=== PATIENT | male | born 1980 | race Two or more races ===

== ENCOUNTER 2024-11-11 13:06 | Inpatient (IN) | payer OTHER, SELFPAY ==
[2024-11-11 13:07] VITALS: BMI 25.1
--- NOTE | 2024-11-11 13:31 | XR_ITS ---
Examination: Knee, right , 3 views Technique: Knee AP, lateral, oblique 3 views Date and time of exam: November 11, 2024 1337 hrs. Indications: Patient fell today with injury to the knee, knee pain. Findings: No acute fracture No dislocation No foreign body Impression: No acute fracture
[2024-11-11 13:51] VITALS: BP 90/61; PULSE 92; RESP 18; TEMP 37; O2SAT 98
--- NOTE | 2024-11-11 13:55 | XR_ITS ---
Examination: Duplex scan of the lower extremity, unilateral right Date and time of exam: December 12, 2024 1454 hrs. Indications: Right knee pain after falling 3 days ago, history dilatation Technique: Duplex scan of the extremity veins using B-mode/grayscale imaging and Doppler spectral analysis and color flow Attention is directed to internal echogenicity, compression and augmentation involving these veins, color flow assessment, spectral analysis Findings: Major deep venous structures in the extremity demonstrate normal course and caliber. There is no evidence of deep vein thrombosis. Normal color flow and spectral analysis Impression: Negative for DVT..
--- NOTE | 2024-11-11 13:56 | PD.EDRME ---
Rapid Medical Screening Exam RME Arrival date/time: 11/11/24 13:06 44-year-old diabetic male presents the emergency department complains of right lower extremity pain and swelling Chief Complaint: Extremity Injury, Lower Time Seen by Provider: 11/11/24 13:21 Vital signs: Vital Signs Temperature 98.6 F 11/11/24 13:51 Pulse Rate 92 11/11/24 13:51 Respiratory Rate 18 11/11/24 13:51 Blood Pressure 90/61 11/11/24 13:51 Pulse Oximetry (%) 98 11/11/24 13:51 Oxygen Delivery Method Room Air 11/11/24 13:51
[2024-11-11 14:30] LABS: Lactate (Lactic Acid) 1.2 mMol/L (0.4-2.0)
[2024-11-11 14:32] LABS: Basophils % (Auto) 0 % (0-2.5); Eosinophils # (Auto) 0.2 Thou/mm3 (0.0-0.5); Eosinophils % (Auto) 1 % (0-10); Hematocrit 28.8 % (41.0-53.0); Immature Granulocytes % (Auto) 1 % (0-0); Immature Granulocytes Auto 0.09 Thou/mm3 (0.00-0.00); Lymphocytes # (Auto) 0.8 Thou/mm3 (1.0-4.8); Lymphocytes % (Auto) 6 % (10-50); Mean Corpuscular HGB Conc 34.7 g/dl (31.0-37.0); Mean Corpuscular Hemoglobin 29.8 pg (25.0-35.0); Mean Corpuscular Volume 86 fL (80-100); Monocytes # (Auto) 1.3 Thou/mm3 (0.0-0.8); Monocytes % (Auto) 9 % (0-12); Neutrophils # (Auto) 11.9 Thou/mm3 (1.8-7.7); Neutrophils % (Auto) 84 % (37-80); Nucleated Red Blood Cell % 0 /100 WBC (0); Platelet Count 239 Thou/mm3 (140-440); RDW Standard Deviation 38.7 fL (35.1-43.9); Red Blood Count 3.36 Miln/mm3 (4.50-5.90); White Blood Count 14.3 Thou/mm3 (3.8-10.6)
[2024-11-11 14:49] LABS: INR 1.1 (0.9-1.3); Partial Thromboplastin Time 30.9 Seconds (22.0-36.0); Prothrombin Time 11.5 Seconds (9.0-12.2)
[2024-11-11 15:06] LABS: Sed Rate (ESR) 76 mm/hr (0-15)
[2024-11-11 15:11] LABS: Alanine Aminotransferase < 7 U/L (10-49); Albumin/Globulin Ratio 1.5 (1.2-2.2); Alkaline Phosphatase 122 U/L (46-116); Anion Gap 10 (7-16); Aspartate Amino Transferase < 8 U/L (0-34); BUN/Creatinine Ratio 20 Ratio (12-20); Bilirubin,Total 0.5 mg/dL (0.3-1.2); Blood Urea Nitrogen 46 mg/dL (9-23); Calcium 9.1 mg/dL (8.3-10.6); Calcium (Corrected) 9.1 mg/dL (8.5-10.1); Carbon Dioxide 18.5 mMol/L (20.0-31.0); Chloride 101 mMol/L (98-107); Creatinine (Component) 2.3 mg/dL (0.6-1.3); Estimated Creatinine Clearance 43.7 mL/min (>60); Globulin 2.7 gm/dL (2.3-3.5); Glucose 369 mg/dL (74-106); Osmolality,Calculated 285 (275-295); Potassium 4.4 mMol/L (3.4-5.1); Procalcitonin 0.74 ng/ml (0.0-0.49); Sodium 129 mMol/L (136-145); Total Protein 6.7 gm/dL (5.7-8.2); Uric Acid 8.4 mg/dL (3.7-9.2); eGFR 35 See Note
--- NOTE | 2024-11-11 16:59 | EDNOTE_ITS ---
Lower Extremity Injury RME/HPI General Chief Complaint: Extremity Injury, Lower Stated Complaint: RIGHT KNEE PAIN FOR 3 DAYS Time Seen by Provider: 11/11/24 13:21 Arrival date/time: 11/11/24 13:06 RME / HPI RME / HPI Narrative: 11/11/24 13:06 44-year-old diabetic male presents the emergency department complains of right lower extremity pain and swelling DR. DOAN MAIN ED EVALUATION: 44 year old male presents to the Emergency Department with complaint of right knee pain onset 3 days; patient unsure of injury. Pain is described as aching and rated mild to moderate in severity. There is associated swelling. 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 Social Hx: No tobacco, alcohol, or substance use. Related Data Home Medications ?Medication ?Instructions ?Recorded ?Confirmed insulin glargine 100 unit/mL (3 60 unit subcut HS 08/03/19 06/23/24 mL) subcutaneous pen (Lantus Solostar U-100 Insulin) insulin lispro 200 unit/mL (3 mL) 1 sliding scale dose subcut 06/24/24 06/24/24 subcutaneous pen (Humalog KwikPen USEASDIRECTD U-200 Insulin) Previous Rx's ?Medication ?Instructions ?Recorded blood-glucose sensor (FreeStyle #1 ea 06/24/24 Jennie 3 Sensor device) ascorbic acid (vitamin C) 500 mg 500 mg PO QDAY #30 caps 06/26/24 capsule Allergies Allergy/AdvReac Type Severity Reaction Status Date / Time No Known Allergies Allergy Verified 11/11/24 13:09 Review of Systems Review of Systems Systems Reviewed: All systems reviewed, normal except as documented Narrative Review of Systems: GEN: No fever, no chills, no weight loss EYES: No discharge, no visual changes, no pain HEENT: No ear pain, no congestion, no sore throat PULM: No shortness of breath, no cough, no congestion CV: No chest pain, no dyspnea on exertion, no palpitations GI: No nausea, no vomiting, no diarrhea, no pain, no constipation : No frequency, no urgency and no dysuria MUSC/SKEL:+ right knee pain with swelling, no back pain SKIN: No rash PSYCH: No hallucinations, no depression HEME/LYMPH: No easy bleeding or bruising tendencies NEURO: No weakness, no headache Past Medical History Past Medical History NEUROLOGIC: Negative Neurological Disorders or Seizures CARDIAC: Positive Cardiac Disorders and Hypercholesterolemia; Negative Congestive Heart Failure RESPIRATORY: Negative Chronic Obstructive Pulmonary Disease (COPD) GASTROINTESTINAL: Negative Gastrointestinal Disorders GENITOURINARY: Negative Genitourinary Disorders or Renal Disease MUSCULOSKELETAL: Positive Osteomyelitis (amputations of toes); Negative Musculoskeletal Disorders ENDOCRINE: Positive Endocrine Disorders and Diabetes Mellitus Type 2; Negative Diabetes Mellitus Type 1 HEMATOLOGIC: Negative Blood Disorders OTHER HISTORY: Negative Autoimmune Disease, Blood Transfusions, Blood Transfusion Reaction, Anesthesia Reactions or Organ Transplant Family History FAMILY HISTORY: Negative Family Psychiatric Problems, Family Respiratory Disorders, Family Cardiac Disorders, Family Gastrointestinal Problems, Family Cancer, Family Surgery or Family Anesthesia Reaction Surgical History SURGICAL: Positive Amputation; Negative Cardiac Surgery, Endocrine Surgery, Ear Surgery, Abdominal Surgery, Nephrectomy, Neurologic Surgery or Organ Transplant Social History SMOKING STATUS: Never smoker SUBSTANCE USE: does not use ED Exam Narrative Physical exam: GENERAL APPEARANCE: alert and oriented x 4, well-developed, well-nourished, no acute distress VITALS: All vitals were reviewed and the pulse ox is 98% on room air, which is normal according to my interpretation. HEENT: Normocephalic, atraumatic; pupils equal, round, reactive to light; EOMI; mucous membranes pink, moist; oropharynx clear NECK: Supple LUNGS: CTABL; no wheezes, no rales, no rhonchi HEART: Regular rate, regular rhythm; normal S1, S2; no murmurs ABDOMEN: non distended; normal BS; soft, no tenderness, no guarding, no rebound; no masses, no organomegaly, no hernia BACK: no CVA tenderness EXTREMITIES: + right knee swelling NEUROLOGIC: awake; alert and oriented x4; cranial nerves II-XII grossly intact; no focal sensory or motor deficits PSYCHIATRIC: appropriate mood and affect SKIN: warm, dry, normal color; no rashes Course Quality Measures none Orders Category Date Time Status COVID-19 Screening Questionnaire NOW Care 11/11/24 17:59 Active Decision to Admit X1 Care 11/11/24 17:59 Active US soft tissue lower back abd Stat Exams 11/11/24 17:31 Ordered US venous doppler LE RT Stat Exams 11/11/24 13:55 Completed XR knee RT 3V Stat Exams 11/11/24 13:31 Completed Blood Culture (Lab) Stat Lab 11/11/24 14:09 Received CBC Stat Lab 11/11/24 14:09 Completed CMP [Comprehensive Metabolic Panel] Stat Lab 11/11/24 14:09 Completed CRP [C-Reactive Protein] Stat Lab 11/11/24 14:09 Completed ESR [Sed Rate (ESR)] Stat Lab 11/11/24 14:09 Completed Extra Blue Top for Platelet Routine Lab 11/11/24 14:09 Completed Lactic Acid [Lactate (Lactic Acid)] Stat Lab 11/11/24 14:09 Completed PT [Prothrombin Time with INR] Stat Lab 11/11/24 14:09 Completed PTT [Partial Thromboplastin Time] Stat Lab 11/11/24 14:09 Completed Procalcitonin Stat Lab 11/11/24 14:09 Completed UA [Urinalysis] Stat Lab 11/11/24 17:33 Ordered UA, C/S IF [Urinalysis, C/S if Indicated] Stat Lab 11/11/24 17:33 Ordered Uric Acid Stat Lab 11/11/24 14:09 Completed Lidocaine 1% 20 ml [Xylocaine 1% 20 ML] Med 11/11/24 17:24 Discontinued 10 ml INFL X1 ONE Sodium Chloride 0.9% 1000 ml [Ns] 1,000 ml Med 11/11/24 16:39 Discontinued IV 999 mls/hr Sodium Chloride 0.9% 1000 ml [Ns] 1,000 ml Med 11/11/24 17:33 Active IV 999 mls/hr cefTRIAXone [Rocephin] 1,000 mg Med 11/11/24 17:33 Discontinued Sodium Chloride 0.9% (P) [Ns 0.9% (P)] 50 ml IV X1 Vital Signs Vital signs: Vital Signs Temperature 98.6 F 11/11/24 13:51 Pulse Rate 92 11/11/24 13:51 Respiratory Rate 18 11/11/24 13:51 Blood Pressure 90/61 11/11/24 13:51 Pulse Oximetry (%) 98 11/11/24 13:51 Oxygen Delivery Method Room Air 11/11/24 13:51 Extremity Injury, Lower MDM Narrative MDM Narrative:: I, Emma Artis am scribing for and in the presence of Dr. Doan. Patient data External records reviewed:: 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 How is presenting disease/condition affected by chronic disease/condition?: exacerbated by Evaluation data The following diagnostics were reviewed and interpreted by me:: lab results and radiology exam(s) Lab and/or radiology exams considered but not ordered:: none Interpretation Summary: Procedure(s): US venous doppler LE RT Accession Number(s): [id number] cc: Casey VILLEGAS),Scooter YUNG; Robert Dent MD; Katlin Pérez PA-C~ Examination: Duplex scan of the lower extremity, unilateral right Date and time of exam: December 12, 2024 1454 hrs. Indications: Right knee pain after falling 3 days ago, history dilatation Technique: Duplex scan of the extremity veins using B-mode/grayscale imaging and Doppler spectral analysis and color flow Attention is directed to internal echogenicity, compression and augmentation involving these veins, color flow assessment, spectral analysis Findings: Major deep venous structures in the extremity demonstrate normal course and caliber. There is no evidence of deep vein thrombosis. Normal color flow and spectral analysis Impression: Negative for DVT.. Dictated By: Robert Dent MD ----- Procedure(s): XR knee RT 3V Accession Number(s): [id number] cc: Casey VILLEGAS),Scooter YUNG; Robert Dent MD; Katlin Pérez PA-C~ Examination: Knee, right , 3 views Technique: Knee AP, lateral, oblique 3 views Date and time of exam: November 11, 2024 1337 hrs. Indications: Patient fell today with injury to the knee, knee pain. Findings: No acute fracture No dislocation No foreign body Impression: No acute fracture Dictated By: Robert Dent MD Medications / Prescriptions Medications or Prescriptions considered but not ordered:: none Medication administrations:: Medication Administration History Sodium Chloride (Ns) 1,000 mls @ 999 mls/hr IV .Q1H1M ONE Stop: 11/11/24 18:33 Discontinued Medications Sodium Chloride (Ns) 1,000 mls @ 999 mls/hr IV .Q1H1M ONE Stop: 11/11/24 17:39 Ceftriaxone Sodium 1,000 mg/ (Sodium Chloride) 50 mls @ 100 mls/hr IV X1 ONE Stop: 11/11/24 18:02 Lidocaine HCl (Lidocaine Hcl 1% 20 Ml Vial) 10 ml INFL X1 ONE Stop: 11/11/24 17:25 see above Consultations Consultation(s) initiated? (list below): Yes Consultation #1 (Physician, Specialty, Details): Discussed test HPI, PMHx, lab, radiology results and/or management with hospitalist. Will admit for further evaluation and management. Accepts patient for admission. Time: 18:00 Diagnosis Extremity Injury, Lower Differential Diagnosis: ankle fracture and other (ankle dislocation, DVT) Most likely diagnosis given after review of the tests above:: As noted below. Admission Indicated Admission indicated?: indicated Admission Request Was there a request for admission?: Yes Admission Attestation Admission request attestation: Discussed case with [] from Hospitalist service regarding admission. Discussed patients ED course, exam findings, labs, and radiology results. The Hospitalist [agrees,declines] to accept the patient for admission. Disposition Plan Disposition Plan: Admit Discharge Plan Prescriptions/Referrals Prescriptions/Med Rec: No Action insulin glargine [Lantus Solostar U-100 Insulin] 100 unit/mL (3 mL) Insulin Pen 60 unit subcut HS Humalog KwikPen Insulin 200 unit/mL (3 mL) Insulin Pen 1 sliding scale dose SUBCUT USEASDIRECTD Rx Instructions: 2-10 units per sliding scale, 30 units max a day (DME) FreeStyle Jennie 3 Sensor Device See Rx Instructions .Route Qty: 1 2RF Rx Instructions: As directed ascorbic acid (vitamin C) 500 mg capsule 500 mg PO QDAY Qty: 30 0RF Referrals: Katlin Pérez PA-C [Primary Care Provider] - In 1 week Patient/Caregiver Discharge Instructions Print Language: Mohawk
[2024-11-11 17:18] VITALS: BP 90/56; PULSE 88; RESP 18; TEMP 37.1; O2SAT 96
--- NOTE | 2024-11-11 17:31 | XR_ITS ---
Examination: Ultrasound soft tissue extremity right knee Technique: Grayscale sonographic images soft tissue right knee Exam date and time: November 11, 2024 1825 hrs. Indications: Patient fell 3 days ago with injury to the knee, knee pain and swelling Findings: Minimal edema in the soft tissue posterior knee No hematoma or cystic mass Impression: No hematoma or cystic mass at the area concern soft tissue posterior right knee
[2024-11-11] MEDS: SODIUM CHLORIDE 0.9% 1000 ML 1,000 ML 999 ML IV ×2 (18:20→18:22)
--- NOTE | 2024-11-11 18:24 | XR_ITS ---
Examination: PA chest single view Technique: Upright PA chest single view Exam date and time: November 11, 2024 1839 hrs. Indications: Sepsis alert today Findings: Normal heart size No pneumonia. The osseous structures are intact Impression: No pneumonia identified
--- NOTE | 2024-11-11 18:24 | XR_ITS ---
Examination: CT abdomen and pelvis without contrast. Coronal 3-D reconstructions. Sagittal 2-D reconstructions. Date and time of exam:November 11, 2024 6 1902 hrs. Indications: Generalized abdominal pain beginning 3 days ago Comparison: May 27, 2007 CTDI: vol (mGy): 7.7 DLP: (mGycm): 480 Technique: Axial images of the abdomen have been obtained, 3 mm slice thickness Intravenous contrast material has not been administered. Low dose protocols were performed. One or more of the following dose reduction techniques were used; automated exposure control, adjustment of the mA and/or KV according to patient size, use of iterative reconstruction technique. Findings: Small pericardial effusion No focal liver or splenic lesions No gallstones Possible dilatation of the proximal pancreatic duct Spleen is not enlarged Perinephric stranding No renal or ureteral calculi Normal appendix No bowel obstruction No prostatomegaly No bladder mass Rectal wall appears mildly thickened The osseous structures are intact Impression: Suspicious for dilatation of the pancreatic duct, consider MRCP abdomen follow-up Perinephric stranding, consider urinary tract infection, no hydronephrosis or ureteral calculi Normal appendix No bowel obstruction Rectal wall appears thickened, clinical correlation advised, proctitis would be included in the differential
--- NOTE | 2024-11-11 18:26 | XR_ITS ---
Examination: CT right lower extremity, without contrast. 2-D sagittal reconstructions. 2-D coronal reconstructions. 3-D reconstructions. Date and time of exam:November 11, 2024 1859 hrs. Indications: Right leg and knee swelling and pain beginning 3 days ago CTDI: vol (mGy):12.5 DLP: (mGycm):804 Technique: Multiple 1.25 mm axial sections of the right lower extremity without intravenous contrast have been obtained. 2-D sagittal and coronal reconstructions have been obtained. 3-D reconstructions have been obtained. Low dose protocols were performed. One or more of the following dose reduction techniques were used; automated exposure control, adjustment of the mA and/or KV according to patient size, use of iterative reconstruction technique. Findings: Mild narrowing right hip joint No hip fracture or dislocation, no avascular necrosis Shaft of the femur intact with no cortical bone destruction Edema in the subcutaneous fatty tissues surrounding the lower thigh especially laterally No significant knee effusion Moderate narrowing medial joint space Impression: No hip or pelvic fracture Mild edema in the subcutaneous fatty tissue mid and lower thigh, no soft tissue abscess No hip or femoral shaft fracture Bones of the knee appear intact with moderate narrowing medial joint space Elective MRI follow-up would best assess for meniscus cruciate ligament or collateral ligament abnormalities of the knee
--- NOTE | 2024-11-11 18:41 | ESHP_ITS ---
Documentation for date of: 11/11/24 HPI History of Present Illness Chief complaint: RLE pain, dark urine History of present illness: Patient is a 44-year-old male with uncontrolled T2DM (last A1c 11.5 06/2024), history of osteomyelitis, history of multiple toe amputations, HTN, HLD who presented to the ED with RLE pain x 3 days. Pain is mainly located in posterior RLE near hamstring. Patient endorses having a fall and landing on both knees. He endorses having dark urine, with poor oral intake other than water, and having elevated blood sugars while at home. Patient also endorses having 1 episode of vomiting but denies nausea/diarrhea. Patient additionally denies any fever/chills, cough, chest pain, shortness of breath, abdominal pain, flank pain or dysuria/LUTS. In the ED, vitals/labs/imaging significant for: BP 90/61, HR 92, afebrile. Leukocytosis 14.3 with left shift, chronic normocytic anemia Hgb 10.0, ESR 76, sodium 129, CO2 18.5, normal anion gap, BUN 46, creatinine 2.3 (baseline appears to be 1.0), glucose 369, normal lactic acid, CRP 27 and Pro-Adonay 0.74. UA not collected at this time. In the ED, knee x-ray was negative for fracture/dislocation. Venous Doppler was negative for DVT. Patient will be admitted for workup and management of MARLON, concern for sepsis with unknown source at this time, and workup and management of RLE pain, with concern for possible osteomyelitis versus soft tissue infection. PMH: As above PSH: Multiple amputation SH: Denies EtOH, tobacco, illicit drugs or high risk sexual activity. Patient works as a light truck driver. NKDA Meds: Lantus, Humalog. Review of Systems Review of Systems Systems Reviewed: All systems reviewed, normal except as documented Exam Vital Signs Temp Pulse Resp BP Pulse Ox O2 Del Method 98.7 F 88 18 90/56 L 96 Room Air 11/11/24 17:18 11/11/24 17:18 11/11/24 17:18 11/11/24 17:18 11/11/24 17:18 11/11/24 17:18 Narrative Exam Gen: AAOx3, sitting in gurney, answers Qs appropriately, mild distress from RLE pain HEENT: NCAT, PERRLA, EOMI, MMM, no LAD CVS: normal S1, S2. RRR. No MRG Resp: CTA B/L. No rhonchi, rales, crackles or wheezing Abd: soft, non-tender, non-distended. BS+ in all 4 quadrants. No CVA tenderness MSK: Good ROM in BUE & LLE, dec ROM in R knee due to pain; mild edema. No rash. Multiple toes amputated on B/L feet. Neuro: CN II-XII grossly intact. No focal deficits noted Results: Labs 11/12/24 04:46 11/12/24 04:46 Labs: Short CBC 11/11/24 Range/Units 14:09 WBC 14.3 H (3.8-10.6) Thou/mm3 Hgb 10.0 L (13.5-16.0) g/dL Hct 28.8 L (41.0-53.0) % Plt Count 239 (140-440) Thou/mm3 BMP 11/11/24 14:09 Sodium 129 L Potassium 4.4 Chloride 101 Carbon Dioxide 18.5 L BUN 46 H Creatinine 2.3 H Glucose 369 H Calcium 9.1 Liver Function 11/11/24 Range/Units 14:09 Total Bilirubin 0.5 (0.3-1.2) mg/dL AST < 8 (0-34) U/L ALT < 7 L (10-49) U/L Alkaline Phosphatase 122 H (46-116) U/L Albumin 4.0 (3.5-5.0) gm/dL Quality Measures Quality Measures VTE prophylaxis Medications Home Medications and Allergies Home Medications ?Medication ?Instructions ?Recorded ?Confirmed ?Type insulin glargine 100 unit/mL (3 60 unit subcut HS 08/03/19 11/11/24 History mL) subcutaneous pen (Lantus Solostar U-100 Insulin) insulin lispro 200 unit/mL (3 mL) 1 sliding scale dose subcut 06/24/24 11/11/24 History subcutaneous pen (Humalog KwikPen USEASDIRECTD U-200 Insulin) Allergies Allergy/AdvReac Type Severity Reaction Status Date / Time No Known Allergies Allergy Verified 11/11/24 13:09 Visit Medications Acetaminophen (Acetaminophen 325 Mg Tablet) 650 mg PO Q6H PRN PRN Reason: Fever >100.4 or mild pain 1-3 Stop: 12/11/24 18:25 Heparin Sodium (Porcine) (Heparin Sod Inj 5000 Unit/Ml Vial) 5,000 unit SC Q12HR ISABEL Stop: 11/25/24 20:59 Sodium Chloride (Ns) 500 mls @ 999 mls/hr IV .Q31M ONE Stop: 11/11/24 18:56 Ondansetron HCl (Ondansetron Inj 2 Mg/Ml Inj 2 Ml) 4 mg IV Q6H PRN; Protocol PRN Reason: NAUSEA OR VOMITING Stop: 12/11/24 18:25 Oxycodone/Acetaminophen (Oxycodone/Apap 5/325 Tablet) 1 tab PO Q6H PRN PRN Reason: PAIN SCALE 4-10(Mod-Sev Stop: 11/16/24 18:25 Pantoprazole Sodium (Pantoprazole 40 Mg Tablet) 40 mg PO QDAY ISABEL Stop: 12/12/24 08:59 Sennosides (Senna Tablet) 1 tab PO QDAY PRN; Protocol PRN Reason: constipation Stop: 12/11/24 18:25 Discontinued Medications Sodium Chloride (Ns) 1,000 mls @ 999 mls/hr IV .Q1H1M ONE Stop: 11/11/24 17:39 Last Admin: 11/11/24 18:20 Dose: 999 mls/hr Sodium Chloride (Ns) 1,000 mls @ 999 mls/hr IV .Q1H1M ONE Stop: 11/11/24 18:33 Last Admin: 11/11/24 18:22 Dose: 999 mls/hr Ceftriaxone Sodium 1,000 mg/ (Sodium Chloride) 50 mls @ 100 mls/hr IV X1 ONE Stop: 11/11/24 18:02 Lidocaine HCl (Lidocaine Hcl 1% 20 Ml Vial) 10 ml INFL X1 ONE Stop: 11/11/24 17:25 Assessment & Plan Plan Patient is a 44-year-old male with uncontrolled T2DM (last A1c 11.5 06/2024), history of osteomyelitis, history of multiple toe amputations, HTN, HLD who presented to the ED with RLE pain x 3 days. Pain is mainly located in posterior RLE near hamstring. Patient endorses having a fall and landing on both knees. He endorses having dark urine, with poor oral intake other than water, and having elevated blood sugars while at home. Patient also endorses having 1 episode of vomiting but denies nausea/diarrhea. Patient additionally denies any fever/chills, cough, chest pain, shortness of breath, abdominal pain, flank pain or dysuria/LUTS. Patient will be admitted for workup and management of MARLON, concern for sepsis with unknown source at this time, and workup and management of RLE pain, with concern for possible osteomyelitis versus soft tissue infection. #MARLON possibly secondary to post renal obstruction versus infectious cause #Hematuria possibly secondary to infection #?Prostatomegaly Patient endorses having poor oral intake other than water. States his urine is dark brown. BUN 46, creatinine 2.3 (baseline 1.0) Prerenal versus postrenal/obstructive Avoid nephrotoxic agents, renally dose medications when appropriate 2.5 L NS for IV fluid resuscitation. Will encourage oral intake Follow-up UA, repeat CHEM panel Follow-up CT A/P => rule out stone #NAGMA in setting of renal dysfunction CO2 18.5, anion gap 10 Patient endorses poor oral intake and vomiting Will resuscitate with IV fluids and continue to monitor CHEM panel Follow-up repeat CHEM panel ordered for this evening #RLE pain #GLF #Concern for osteomyelitis versus rhabdomyolysis Knee x-ray Doppler were negative for fracture/DVT. ESR and CRP significantly elevated Follow-up RLE CT, CK Acetaminophen and oxycodone for pain #Leukocytosis #Concern for sepsis, unknown source Patient meets 2/4 SIRS criteria with HR, WBC. LA normal. Pro-Adonay mildly elevated, although patient has MARLON DDx includes UTI versus STI versus osteomyelitis versus prostatitis versus dehydration 2.5 L IV fluid resuscitation ordered per sepsis protocol Follow-up UA, CXR, RLE CT, CT A/P, PSA #T2DM #Hyperglycemia Blood glucose 369 on admission Follow-up A1c 40 units Lantus, SSI, hypoglycemia protocol in place Low carb consistent diet #HTN BP soft with SBP 90?110 IV fluids given Continue to monitor vital signs Holding antihypertensives at this time #Chronic normocytic anemia Hgb 10, MCV 86 Appears chronic, no bleed at this time. Will continue to monitor CBC #HLD Patient started on atorvastatin 40 mg at bedtime. Last lipid panel and June 2024 with LDL 108 Dispo: Med telemetry for workup and management of MARLON, concern for sepsis, RLE pain workup/management GI PPx: Protonix DVT prophylaxis: Heparin Diet: Carb low carb consistent CODE STATUS: Full code Patient seen and care discussed with my attending Dr. Guerin. Mina Mcgee MD PGY-3 Attending Provider Attestation/Addendum I have discussed and was present for the essential components of the history, physical examination, diagnosis, and treatment plan with the resident. I agree with the patient's care as documented by the resident and amended herein by me. Sadiq Guerin DO. Although this document has been carefully reviewed, there may still be some phonetic and other typographical errors. These errors are purely grammatical due to imperfections in the software program and should not be construed in any way to compromise the substance of the patient's medical care during this visit.
[2024-11-11] MEDS: cefTRIAXone 1,000 MG in SODIUM CHLORIDE 0.9% (P) 50 ML 100 MG IV (19:08)
[2024-11-11 19:10] LABS: Prostate Specific Antigen 0.26 ng/mL (0-4.00)
[2024-11-11 19:14] LABS: Glucose Estimated Average 298 mg/dL (80-131)
[2024-11-11 19:20] LABS: Anion Gap 11 (7-16); BUN/Creatinine Ratio 17 Ratio (12-20); Blood Urea Nitrogen 47 mg/dL (9-23); Calcium 8.9 mg/dL (8.3-10.6); Carbon Dioxide 17.5 mMol/L (20.0-31.0); Chloride 102 mMol/L (98-107); Creatine Kinase 55 U/L (34-171); Creatinine (Component) 2.8 mg/dL (0.6-1.3); Estimated Creatinine Clearance 35.9 mL/min (>60); Glucose 356 mg/dL (74-106); Osmolality,Calculated 287 (275-295); Potassium 4.5 mMol/L (3.4-5.1); Sodium 130 mMol/L (136-145); eGFR 28 See Note
[2024-11-11 20:11] VITALS: BP 128/66; PULSE 97; RESP 16; O2SAT 99
[2024-11-11 20:23] LABS: Collection Type, Urine Clean Catch; Squamous Epithelial Cell,Urine 0 /hpf (0-5)
[2024-11-11 20:33] LABS: Bilirubin,Urine Negative (Negative); Blood,Urine Trace (Negative); Clarity,Urine Clear (Clear/Hazy); Color,Urine Yellow (Lt Yel-Yel); Culture Indicated,Urine Not Indicated; Glucose, Urine 4+ (Negative); Hyaline Casts,Urine < 1 /hpf (0-1); Ketones,Urine Negative (Negative); Leukocyte Esterase,Urine Negative (Negative); Nitrite,Urine Negative (Negative); Protein,Urine 2+ (Neg - Trace); RBC,Urine 4 /hpf (0-3); Urobilinogen,Urine Negative mg/dL (0.0-1.0); WBC,Urine 6 /hpf (0-5)
[2024-11-11] MEDS: SODIUM CHLORIDE 0.9% 500 ML 500 ML 999 ML IV (20:48)
[2024-11-11] MEDS: HEPARIN SOD INJ 5000 UNIT/ML VIAL SC (20:49)
[2024-11-11] MEDS: ATORVASTATIN CALCIUM 20 MG TABLET 40 MG PO (20:49)
[2024-11-11] MEDS: INSULIN GLARGINE (Lantus) 5 UNIT/0.05 ML (PER 5 UNITS) 40 UNIT SC (20:49)
[2024-11-11] MEDS: INSULIN HUM REGULAR 1 UNIT/0.01 ML (PER UNIT) SC (21:06)
--- NOTE | 2024-11-11 21:38 | PC.LAC ---
REPORT CALLED TO TONY MEYER ALL QUESTIONS ASKED AND ANSWERED. PATIENT TRANSFERRED TO FLOOR BY STAFF. PATIENT REMAINS ON ROOM AIR. NO DISTRESS NOTED ON TRANSFER.
[2024-11-11 21:42] VITALS: BP 123/81; PULSE 102; RESP 18; TEMP 37.4; O2SAT 97; BMI 25.0
[2024-11-12] VITALS (9 sets, daily range): BP systolic 107–149; BP diastolic 57–65; PULSE 84–109; RESP 16–19; TEMP 37–39.4; O2SAT 96–98; BMI 25.1
[2024-11-12 05:57] LABS: Basophils % (Auto) 0 % (0-2.5); Eosinophils # (Auto) 0.1 Thou/mm3 (0.0-0.5); Eosinophils % (Auto) 1 % (0-10); Hematocrit 24.5 % (41.0-53.0); Immature Granulocytes % (Auto) 1 % (0-0); Immature Granulocytes Auto 0.12 Thou/mm3 (0.00-0.00); Lymphocytes # (Auto) 0.6 Thou/mm3 (1.0-4.8); Lymphocytes % (Auto) 5 % (10-50); Mean Corpuscular HGB Conc 33.9 g/dl (31.0-37.0); Mean Corpuscular Hemoglobin 29.2 pg (25.0-35.0); Mean Corpuscular Volume 86 fL (80-100); Monocytes # (Auto) 1.3 Thou/mm3 (0.0-0.8); Monocytes % (Auto) 10 % (0-12); Neutrophils # (Auto) 10.7 Thou/mm3 (1.8-7.7); Neutrophils % (Auto) 83 % (37-80); Nucleated Red Blood Cell % 0 /100 WBC (0); Platelet Count 182 Thou/mm3 (140-440); RDW Standard Deviation 39.8 fL (35.1-43.9); Red Blood Count 2.84 Miln/mm3 (4.50-5.90); White Blood Count 12.9 Thou/mm3 (3.8-10.6)
[2024-11-12 06:03] LABS: Hemoglobin 8.3 g/dL (13.5-16.0)
[2024-11-12 06:55] LABS: Anion Gap 9 (7-16); BUN/Creatinine Ratio 22 Ratio (12-20); Blood Urea Nitrogen 44 mg/dL (9-23); Calcium 9.2 mg/dL (8.3-10.6); Carbon Dioxide 17.3 mMol/L (20.0-31.0); Chloride 106 mMol/L (98-107); Estimated Creatinine Clearance 50.2 mL/min (>60); Glucose 264 mg/dL (74-106); Magnesium 1.8 mg/dL (1.6-2.6); Osmolality,Calculated 284 (275-295); Potassium 4.2 mMol/L (3.4-5.1); Sodium 132 mMol/L (136-145); eGFR 41 See Note
[2024-11-12] MEDS: oxyCODONE/APAP 5/325 TABLET 1 TAB PO ×3 (07:18→20:57)
--- NOTE | 2024-11-12 07:49 | PC.NURSE ---
Addendum entered by Zoë Spencer RN 11/12/24 07:52: No complaints of SOB or chest pain Original Note: called C[employer]ON[employer] BOILER due to pt HR 190's on Vitals machine. BP 97/59 then 107/64. Tele box says 92.
[2024-11-12] MEDS: INSULIN HUM REGULAR 1 UNIT/0.01 ML (PER UNIT) SC ×4 (08:11→20:56)
[2024-11-12] MEDS: HEPARIN SOD INJ 5000 UNIT/ML VIAL SC ×2 (08:11→20:55)
[2024-11-12] MEDS: PANTOPRAZOLE 40 MG TABLET PO (08:11)
--- NOTE | 2024-11-12 09:14 | XR_ITS ---
Examination: Retroperitoneal ultrasound, complete Technique: Multiple high resolution grayscale images of the retroperitoneum obtained, including kidneys and bladder. Exam date and time:November 12, 2024 1030 hours INDICATIONS: Renal failure on laboratory examination today FINDINGS: : Right kidney 12.7 x 6.8 x 5.9 cm cortex 2.3 cm Left kidney 14.1 x 5.9 x 5.5 cm renal cortex 2.5 cm Moderate renal parenchymal scar formation Upper pole left renal cyst 17 mm No hydronephrosis No bladder mass or bladder calculi Bladder prevoid volume 532 cc unable to void Prostate volume 22 cc no prostate nodules IMPRESSION: Moderate bilateral renal parenchymal scar formation, no hydronephrosis
--- NOTE | 2024-11-12 11:37 | PC.SS ---
Patient is alert/oriented. He was admitted for concern for sepsis and MARLON. Patient states he's independent with ADL's. He does not use any DME. Patient resides with his mother. He is still employed. Patient states he recently fell and cannot apply pressure to legs due to pain. Patient has hx: diabetes. He's on insulin and has a glucometer machine. Patient d/c plan is to return home. Patient pharmacy: [facility] transport: private vehicle. Alt designated caregiver: mother, Jess,
[2024-11-12] MEDS: INSULIN LISPRO (AdmeLOG) 1 UNIT/0.01 ML UNIT 3 UNIT SC ×2 (12:35→17:06)
[2024-11-12 15:35] LABS: Chloride,Urine Random 34.7 mMol/L (55.0-125.0); Creatinine MALB Rnd Ur 148 mg/dL (30-125); Creatinine,Random Urine 148 mg/dL (30-125); Potassium,Urine Random 26 mMol/L (12-62); Protein Total, Random Urine 176 mg/dL (1-14); Sodium,Urine Random 16.7 mMol/L (20.0-110.0)
[2024-11-12 15:36] LABS: Microalbumin Creat Ratio 303 mg/gCrea (<30); Microalbumin, Random Urine 448 mg/L (0-300)
--- NOTE | 2024-11-12 17:30 | ESPR_ITS ---
Documentation for date of: 11/12/24 Subjective Subjective Interval history: Patient seen and examined at bedside this morning. An MIXING MACHINE ATTENDANT was called this morning for tachycardia as noted on vital signs machine, however HR was noted to be 96 on telemetry box and approximately 95 with manual palpation of radial artery. Patient was asymptomatic at this time. Patient has no acute complaints other than pain in right knee. Vitals, labs reviewed. Leukocytosis is improving. MARLON is improving however non-anion gap metabolic acidosis remains. Will follow-up with renal ultrasound, urine electrolytes. A1c 12.0. Patient was counseled extensively on tight glycemic control and risks of worsening diabetes, including further amputations. CT abdomen pelvis revealed perinephric stranding and questionable dilated pancreatic duct and proctitis. Will start patient on Rocephin at this time. CT lower extremity was negative and radiology recommended outpatient MRI follow-up. Exam Vital Signs Temp Pulse Resp BP Pulse Ox O2 Del Method 98.6 F 109 H 19 149/65 H 96 Room Air 11/12/24 16:00 11/12/24 16:00 11/12/24 16:00 11/12/24 16:00 11/12/24 16:11/12/24 16:00 Narrative Exam Gen: AAOx3, answers Qs appropriately, mild distress from RLE pain, pleasant to speak with HEENT: NCAT, PERRLA, EOMI, MMM, no LAD CVS: normal S1, S2. RRR. No MRG Resp: CTA B/L. No rhonchi, rales, crackles or wheezing Abd: soft, non-tender, non-distended. BS+ in all 4 quadrants. No CVA tenderness MSK: Good ROM in BUE & LLE, dec ROM in R knee due to pain; mild edema. No rash. Multiple toes amputated on B/L feet. Neuro: CN II-XII grossly intact. No focal deficits noted Objective Labs 11/12/24 04:46 11/12/24 04:46 Labs: Laboratory Results - last 24 hr 11/11/24 11/11/24 11/11/24 14:09 18:44 20:15 WBC RBC Hgb Hct MCV MCH MCHC RDW Std Deviation Plt Count Neut % (Auto) Lymph % (Auto) [place] % (Auto) Eos % (Auto) Baso % (Auto) Neut # (Auto) Lymph # (Auto) [place] # (Auto) Eos # (Auto) Baso # (Auto) Immature Gran # (Auto) Absolute Nucleated RBC Immature Gran % Nucleated RBC % Sodium 130 L Potassium 4.5 Chloride 102 Carbon Dioxide 17.5 L Anion Gap 11 BUN 47 H Creatinine 2.8 H D Estim Creat Clear Calc 35.9 L eGFR 28 L BUN/Creatinine Ratio [address] Glu mg/dL 298 H Hemoglobin A1c 12.0 H Calculated Osmolality 287 Calcium 8.9 Magnesium Total Creatine Kinase 55 Prostate Specific Ag 0.26 Ur Collection Type Clean Catch Urine Color Yellow Urine Clarity Clear Urine pH 6.0 Ur Specific Van 1.020 Urine Protein 2+ A Urine Glucose (UA) 4+ A Urine Ketones Negative Urine Blood Trace Urine Nitrite Negative Urine Bilirubin Negative Urine Urobilinogen (Auto) Negative Ur Leukocyte Esterase Negative Urine RBC 4 H Urine WBC 6 H Ur Squamous Epith Cells 0 Urine Bacteria None Hyaline Casts < 1 Ur Culture Indicated? Not Indicated Ur Random Creatinine Ur Random Microalbumin U Random Total Protein Ur Random Sodium Ur Random Potassium Ur Random Chloride U Creat (Microalbumin) Microalb/Creat Ratio 11/12/24 11/12/24 04:46 14:50 WBC 12.9 H RBC 2.84 L Hgb 8.3 L Hct 24.5 L MCV 86 MCH 29.2 MCHC 33.9 RDW Std Deviation 39.8 Plt Count 182 D Neut % (Auto) 83 H Lymph % (Auto) 5 L [place] % (Auto) 10 Eos % (Auto) 1 Baso % (Auto) 0 Neut # (Auto) 10.7 H Lymph # (Auto) 0.6 L [place] # (Auto) 1.3 H Eos # (Auto) 0.1 Baso # (Auto) 0.0 Immature Gran # (Auto) 0.12 H Absolute Nucleated RBC 0.00 Immature Gran % 1 H Nucleated RBC % 0 Sodium 132 L Potassium 4.2 Chloride 106 Carbon Dioxide 17.3 L Anion Gap 9 BUN 44 H Creatinine 2.0 H D Estim Creat Clear Calc 50.2 L eGFR 41 L BUN/Creatinine Ratio 22 H Glucose [address] Glu mg/dL Hemoglobin A1c Calculated Osmolality 284 Calcium 9.2 Magnesium 1.8 Total Creatine Kinase Prostate Specific Ag Ur Collection Type Urine Color Urine Clarity Urine pH Ur Specific Van Urine Protein Urine Glucose (UA) Urine Ketones Urine Blood Urine Nitrite Urine Bilirubin Urine Urobilinogen (Auto) Ur Leukocyte Esterase Urine RBC Urine WBC Ur Squamous Epith Cells Urine Bacteria Hyaline Casts Ur Culture Indicated? Ur Random Creatinine 148 H Ur Random Microalbumin 448 H U Random Total Protein 176 H Ur Random Sodium 16.7 L Ur Random Potassium 26 Ur Random Chloride 34.7 L U Creat (Microalbumin) 148 H Microalb/Creat Ratio 303 H Quality Measures Quality Measures VTE prophylaxis Assessment & Plan Assessment Current Active Medications: Generic Name Dose Route Start Last Admin Trade Name Freq PRN Reason Stop Dose Admin Acetaminophen 650 mg 11/11/24 18:26 Acetaminophen 325 Mg Tablet PO 12/11/24 18:25 Q6H PRN Fever >100.4 or mild pain 1-3 Atorvastatin Calcium 40 mg 11/11/24 21:00 11/11/24 20:49 Atorvastatin Calcium 20 Mg Tablet PO 12/11/24 20:59 40 mg HS ISABEL Administration Dextrose 25 ml 11/11/24 18:41 Dextrose 50%-Water Inj 50 Ml Syringe IV 12/11/24 18:40 Q15MIN PRN BG 50-70 responsive npo pt Dextrose 50 ml 11/11/24 18:41 Dextrose 50%-Water Inj 50 Ml Syringe IV 12/11/24 18:40 Q15MIN PRN BG <50 OR BG <70 & pt unresponsive Heparin Sodium (Porcine) 5,000 unit 11/11/24 21:00 11/12/24 08:11 Heparin Sod Inj 5000 Unit/Ml Vial SC 11/25/24 20:59 5,000 unit Q12HR ISABEL Administration Ceftriaxone Sodium/Dextrose 50 mls @ 100 mls/hr 11/13/24 09:00 Rocephin/D5w 1gm Iv Premix IV 11/20/24 08:59 QDAY ISABEL Insulin Glargine 40 unit 11/11/24 21:00 11/11/24 20:49 Insulin Glargine (Lantus) 5 Unit/0.05 Ml (Per 5 Units) SC 12/11/24 20:59 40 unit HS [facility] Administration Insulin Human Lispro 3 unit 11/12/24 12:00 11/12/24 17:06 Insulin Lispro (Admelog) 1 Unit/0.01 Ml Unit SC 12/12/24 11:59 3 unit TIDWM [facility] Administration Insulin Human Regular 0 unit 11/11/24 21:00 11/12/24 17:04 Insulin Hum Regular 1 Unit/0.01 Ml (Per Unit) SC 12/11/24 20:59 2 unit ACHS ISABEL Administration Protocol Ondansetron HCl 4 mg 11/11/24 18:26 Ondansetron Inj 2 Mg/Ml Inj 2 Ml IV 12/11/24 18:25 Q6H PRN NAUSEA OR VOMITING Protocol Oxycodone/Acetaminophen 1 tab 11/11/24 18:26 11/12/24 13:19 Oxycodone/Apap 5/325 Tablet PO 11/16/24 18:25 1 tab Q6H PRN Administration PAIN SCALE 4-10(Mod-Sev Pantoprazole Sodium 40 mg 11/12/24 09:00 11/12/24 08:11 Pantoprazole 40 Mg Tablet PO 12/12/24 08:59 40 mg QDAY ISABEL Administration Sennosides 1 tab 11/11/24 18:26 Senna Tablet PO 12/11/24 18:25 QDAY PRN constipation Protocol Plan Patient is a 44-year-old male with uncontrolled T2DM (last A1c 11.5 06/2024), history of osteomyelitis, history of multiple toe amputations, HTN, HLD who presented to the ED with RLE pain x 3 days. Pain is mainly located in posterior RLE near hamstring. Patient endorses having a fall and landing on both knees. He endorses having dark urine, with poor oral intake other than water, and having elevated blood sugars while at home. Patient also endorses having 1 episode of vomiting but denies nausea/diarrhea. Patient additionally denies any fever/chills, cough, chest pain, shortness of breath, abdominal pain, flank pain or dysuria/LUTS. Patient will be admitted for workup and management of MARLON, concern for sepsis with unknown source at this time, and workup and management of RLE pain, with concern for possible osteomyelitis versus soft tissue infection. #MARLON, prerenal, improving #Hematuria possibly secondary to infection #?Prostatomegaly versus prostate nodule, ruled out Patient endorses having poor oral intake other than water. States his urine is dark brown. BUN 46, creatinine 2.3 (baseline 1.0) Prerenal versus postrenal/obstructive Avoid nephrotoxic agents, renally dose medications when appropriate 2.5 L NS for IV fluid resuscitation. Will encourage oral intake Renal ultrasound: Moderate bilateral renal parenchymal scar formation without hydronephrosis CTA/P: Concerning for perinephric stranding without hydronephrosis or ureteral calculi Urine electrolytes ordered: FENa calculated 0.2% indicating prerenal MARLON PSA within normal limits #Concern for UTI versus STI UA was significant for 6 WBC, 4 RBC however was sent after patient received Rocephin. PCR for chlamydia/gonorrhea/trichomoniasis pending CT A/P revealed perinephric stranding, therefore will follow-up with urine culture and start patient on Rocephin #NAGMA in setting of renal dysfunction CO2 18.5, anion gap 10 Patient endorses poor oral intake and vomiting Will resuscitate with IV fluids and continue to monitor CHEM panel CHEM panel: CO2 17.3 #RLE pain #GLF #Concern for osteomyelitis versus rhabdomyolysis, ruled out Knee x-ray Doppler were negative for fracture/DVT. ESR and CRP significantly elevated RLE CT as below, CK within normal limits Acetaminophen and oxycodone for pain #Leukocytosis, improving #Concern for sepsis, unknown source, possibly UTI Patient meets 2/4 SIRS criteria with HR, WBC. LA normal. Pro-Adonay mildly elevated, although patient has MARLON DDx includes UTI versus STI versus osteomyelitis versus prostatitis versus dehydration 2.5 L IV fluid resuscitation ordered per sepsis protocol UA as above CXR negative for pneumonia. CT A/P: Perinephric stranding, questionable pancreatic duct dilatation, and proctitis noted CT RLE: Mild edema and subcutaneous fatty tissue in mid and lower thigh without abscess or any fractures. Patient can follow-up with elective MRI outpatient for possible ligament abnormalities #T2DM #Hyperglycemia Blood glucose 369 on admission A1c 12 FBG 264, with POC 277?309 SSI, added 3 units lispro 3 times daily with meals, and will increase Lantus to 45 units at bedtime Hypoglycemia protocol in place Low carb consistent diet #HTN BP soft with SBP 90?110 IV fluids given Continue to monitor vital signs Holding antihypertensives at this time #Chronic normocytic anemia Hgb 10, MCV 86 Appears chronic, no bleed at this time. Will continue to monitor CBC #HLD Patient started on atorvastatin 40 mg at bedtime. Last lipid panel and June 2024 with LDL 108 Dispo: Med telemetry for workup and management of MRALON, concern for sepsis possibly secondary to UTI GI PPx: Protonix DVT prophylaxis: Heparin Diet: Low carb consistent CODE STATUS: Full code Patient seen and care discussed with my attending Dr. Guerin. Mina Mcgee MD PGY-3 Attending Provider Attestation/Addendum I have discussed and was present for the essential components of the history, physical examination, diagnosis, and treatment plan with the resident. I agree with the patient's care as documented by the resident and amended herein by me. Sadiq Guerin, DO. Vital signs stable, patient afebrile overnight, Tmax 100.1, blood glucose was elevated to 62 and the morning. Anion gap normalized, A1c is 12, significant labs include a downtrending WBC of 13, steady hemoglobin of 8.5, sodium potassium within normal limits, bicarb low at 17, BUN 44, creatinine down trended to 2.0. Urine lites were ordered demonstrating nephrotic range proteinuria from the spot protein, a bilateral Renal ultrasound demonstrated moderate bilateral renal parenchymal scar formation however no hydronephrosis, CTAP performed yesterday significant for perinephric stranding and some dilation of the pancreatic duct however patient completely asymptomatic with the exception of the dark red urine he had approximately 2 days prior to admission. CT of the patient's right lower extremity in his quadricep region was largely unremarkable however still remains very painful. Today will continue ceftriaxone, follow-up with blood and urine cultures, uptitrate his insulin as necessary, likely discharge tomorrow 11/13 pending further improvement. Diabetic education was also performed for the patient, he will need close primary care follow-up in the outpatient setting for his uncontrolled diabetes. Although this document has been carefully reviewed, there may still be some phonetic and other typographical errors. These errors are purely grammatical due to imperfections in the software program and should not be construed in any way to compromise the substance of the patient's medical care during this visit.
[2024-11-12 17:54] LABS: Chlamydia trachomatis PCR Negative (Not Detect); Neisseria Gonorrhoeae DNA PCR Negative (Not Detect); Trichomonas Negative (Negative)
[2024-11-12] MEDS: ACETAMINOPHEN 325 MG TABLET 650 MG PO (19:28)
[2024-11-12] MEDS: INSULIN GLARGINE (Lantus) 5 UNIT/0.05 ML (PER 5 UNITS) 45 UNIT SC (20:56)
[2024-11-12] MEDS: ATORVASTATIN CALCIUM 20 MG TABLET 40 MG PO (20:57)
--- NOTE | 2024-11-12 21:30 | PC.NURSE ---
Patient spiked a fever tonight 103 oral temp. Vitals are stable. Patient said he had 3 thick blankets on which kept him comfortable due to his pain. Tylenol was given and cooling measures applied. Educated patient about cooling measures. Fever went down to 100.3 after the tylenol and cooling measures. Will continue to monitor throughout the night
--- NOTE | 2024-11-12 22:22 | XR_ITS ---
Examination: AP chest single view Technique: AP portable upright chest single view Exam date and time: November 12, 2024 1043 hrs. Comparison June 23, 2024 Indication: Sepsis today Findings: Normal heart size Lungs are clear. The osseous structures are intact Impression: No pneumonia identified
--- NOTE | 2024-11-12 22:22 | EKG_ITS ---
[facility] Test Date: 2024-11-12 Pat Name: MARIANN PUENTES [facility]: [facility] Gender: Male Recreation Activities Coordinator: ALIS : 1980 Requested By: Ninoska Barrett Order Number: [id number] Reading MD: Ninoska Barrett Measurements Intervals [place] Rate: 88 P: 46 DC: 149 QRS: 20 QRSD: 100 T: 49 QT: 323 QTc: 392 Interpretive Statements SINUS RHYTHM NONSPECIFIC T-WAVE ABNORMALITY Compared to ECG 06/23/2024 20:34:08 T-wave abnormality now present /store/S0/[id number].pdf
[2024-11-12] MEDS: RINGERS LACTATED 1000 ML 1,000 ML 999 ML IV ×2 (22:33→23:45)
--- NOTE | 2024-11-12 22:35 | PC.NURSE ---
ASSISTANCE SPECIALIST called at approximately 2217 due to concern for sepsis. Pt has a temp 101, HR 103, BP 92/60. Sepsis alert initiated
--- NOTE | 2024-11-12 22:47 | PD.RESEVENT ---
Documentation for date of: 11/12/24 Event Note Event Note: Rapid Response Room: [facility] Time: 22:17 Reason for Call: Temp 101, sepsis alert Patient presentation: Patient was alert and oriented, baseline mental status. Explained that right leg pain has persisted since admission. He had temp 101, HR 103, BP 92/60, on room air. Patient also had a rapid this morning but sepsis alert not called yet. Assessment: Source for patient sepsis is still unclear, on examination his right leg is markedly warmer, and he continues to complain of pain, however there is not significant rash or blistering, no fluctuance or tense skin. Patient has had multiple imaging studies already including R knee XR, venous doppler, soft tissue US, and CT of the lower R extremity which all did not show any significant findings. There is no evidence of osteomyelitis. Will escalate antibiotics and order MRI lower extremity. New orders: Sepsis alert labs including CBC, CMP, lactate, procal, blood cultures, urine culture, EKG, CXR. 2L LR bolus given. Antibiotics upgraded from ceftriaxone alone to cefepime + doxycycline for pseudomonas and MRSA coverage. MRI right leg ordered. Patient was discussed with the attending, Dr. Parekh, and co-residents Ron Fonseca, PGY-1 and Ralph Palomino, PGY-3. Ninoska Barrett, PGY-2
[2024-11-12 22:49] LABS: Lactate (Lactic Acid) 0.8 mMol/L (0.4-2.0)
[2024-11-12 22:53] LABS: Basophils % (Auto) 0 % (0-2.5); Eosinophils % (Auto) 0 % (0-10); Hematocrit 23.4 % (41.0-53.0); Immature Granulocytes % (Auto) 2 % (0-0); Immature Granulocytes Auto 0.23 Thou/mm3 (0.00-0.00); Lymphocytes # (Auto) 0.9 Thou/mm3 (1.0-4.8); Lymphocytes % (Auto) 6 % (10-50); Mean Corpuscular HGB Conc 34.6 g/dl (31.0-37.0); Mean Corpuscular Hemoglobin 29.5 pg (25.0-35.0); Mean Corpuscular Volume 85 fL (80-100); Monocytes # (Auto) 1.7 Thou/mm3 (0.0-0.8); Monocytes % (Auto) 12 % (0-12); Neutrophils # (Auto) 11.8 Thou/mm3 (1.8-7.7); Neutrophils % (Auto) 81 % (37-80); Nucleated Red Blood Cell % 0 /100 WBC (0); RDW Standard Deviation 37.9 fL (35.1-43.9); Red Blood Count 2.75 Miln/mm3 (4.50-5.90); White Blood Count 14.6 Thou/mm3 (3.8-10.6)
[2024-11-12 23:01] LABS: Hemoglobin 8.1 g/dL (13.5-16.0)
[2024-11-12 23:02] LABS: Platelet Count 205 Thou/mm3 (140-440)
[2024-11-12] MEDS: CEFEPIME INJ 1 GM in SODIUM CHLORIDE 0.9% (P) 50 ML IV (23:15)
[2024-11-12] MEDS: DOXYCYCLINE 100 MG TABLET PO (23:15)
[2024-11-12 23:25] LABS: Alanine Aminotransferase < 7 U/L (10-49); Albumin, Serum 3.1 gm/dL (3.5-5.0); Albumin/Globulin Ratio 1.4 (1.2-2.2); Alkaline Phosphatase 94 U/L (46-116); Anion Gap 8 (7-16); Aspartate Amino Transferase < 8 U/L (0-34); BUN/Creatinine Ratio 20 Ratio (12-20); Bilirubin,Total 0.4 mg/dL (0.3-1.2); Blood Urea Nitrogen 43 mg/dL (9-23); Calcium 8.4 mg/dL (8.3-10.6); Calcium (Corrected) 9.1 mg/dL (8.5-10.1); Carbon Dioxide 17.8 mMol/L (20.0-31.0); Chloride 106 mMol/L (98-107); Creatinine (Component) 2.2 mg/dL (0.6-1.3); Estimated Creatinine Clearance 44.2 mL/min (>60); Globulin 2.2 gm/dL (2.3-3.5); Glucose 206 mg/dL (74-106); Osmolality,Calculated 281 (275-295); Potassium 4.2 mMol/L (3.4-5.1); Sodium 132 mMol/L (136-145); Total Protein 5.3 gm/dL (5.7-8.2); eGFR 37 See Note
[2024-11-12 23:35] LABS: C-Reactive Protein 24.5 mg/dL (0.0-0.9); Procalcitonin 0.84 ng/ml (0.0-0.49)
[2024-11-12 23:41] LABS: INR 1.1 (0.9-1.3); Partial Thromboplastin Time 36.4 Seconds (22.0-36.0); Prothrombin Time 12.1 Seconds (9.0-12.2)
[2024-11-13] VITALS (7 sets, daily range): BP systolic 100–120; BP diastolic 61–68; PULSE 79–105; RESP 16–19; TEMP 36.8–37.7; O2SAT 93–99
--- NOTE | 2024-11-13 | XR_ITS ---
Examination: MRI right lower leg, without contrast Date and time of exam: November 13, 2024 at 0940 hours INDICATIONS: Right lower extremity pain warmth unable to bear weight difficulty walking one week Technique: Multiple axial sagittal and coronal images of the right lower extremity have been obtained with the Siemens high-resolution 1.5 [place] MRI scanner. Images obtained include T2-weighted fat-suppressed sagittal sections, TR 3500, TE 46, T2 weighted coronal fat suppressed images, TR 3050, TE 84, T2-weighted transverse fat suppressed images, TR 3260, TE 63, proton density transverse images, TR 4720 TE 46, and T1 weighted coronal images, TR 560, TE 13. Findings: Adequate marrow signal visualized femur and proximal tibia Edema in the subcutaneous fatty tissue anterior medial and lateral thigh Diffuse increased signal in several of the muscles of the thigh, including biceps femoris, vastus lateralis, vastus intermedius, adductor nadia without soft tissue abscess No cortical bone destruction involving the femoral shaft visualized tibia or fibula This is not a dedicated MRI knee study IMPRESSION: Edema in the subcutaneous fatty tissue anterior medial and lateral thigh Significant myositis involving muscles of the thigh, including biceps femoris, vastus lateralis, vastus intermedius, adductor nadia No soft tissue abscess Negative for osteomyelitis
[2024-11-13 06:23] LABS: Anion Gap 9 (7-16); BUN/Creatinine Ratio 23 Ratio (12-20); Blood Urea Nitrogen 43 mg/dL (9-23); Calcium 8.3 mg/dL (8.3-10.6); Carbon Dioxide 17.9 mMol/L (20.0-31.0); Chloride 104 mMol/L (98-107); Creatinine (Component) 1.9 mg/dL (0.6-1.3); Estimated Creatinine Clearance 51.2 mL/min (>60); Glucose 233 mg/dL (74-106); Osmolality,Calculated 280 (275-295); Potassium 4.2 mMol/L (3.4-5.1); Sodium 131 mMol/L (136-145); eGFR 44 See Note
[2024-11-13 07:27] LABS: Basophils % (Auto) 0 % (0-2.5); Eosinophils % (Auto) 0 % (0-10); Hematocrit 23.3 % (41.0-53.0); Immature Granulocytes % (Auto) 2 % (0-0); Immature Granulocytes Auto 0.26 Thou/mm3 (0.00-0.00); Lymphocytes # (Auto) 0.6 Thou/mm3 (1.0-4.8); Lymphocytes % (Auto) 4 % (10-50); Mean Corpuscular HGB Conc 34.3 g/dl (31.0-37.0); Mean Corpuscular Hemoglobin 29.3 pg (25.0-35.0); Mean Corpuscular Volume 85 fL (80-100); Monocytes # (Auto) 1.5 Thou/mm3 (0.0-0.8); Monocytes % (Auto) 11 % (0-12); Neutrophils # (Auto) 11.6 Thou/mm3 (1.8-7.7); Neutrophils % (Auto) 83 % (37-80); Nucleated Red Blood Cell % 0 /100 WBC (0); Platelet Count 196 Thou/mm3 (140-440); Red Blood Count 2.73 Miln/mm3 (4.50-5.90)
[2024-11-13] MEDS: INSULIN HUM REGULAR 1 UNIT/0.01 ML (PER UNIT) SC ×4 (08:02→20:31)
[2024-11-13] MEDS: CEFEPIME INJ 1 GM in SODIUM CHLORIDE 0.9% (P) 50 ML IV ×2 (08:02→20:27)
[2024-11-13] MEDS: INSULIN LISPRO (AdmeLOG) 1 UNIT/0.01 ML UNIT 3 UNIT SC ×3 (08:02→18:21)
[2024-11-13] MEDS: oxyCODONE/APAP 5/325 TABLET 1 TAB PO ×2 (08:03→18:33)
[2024-11-13] MEDS: DOXYCYCLINE 100 MG TABLET PO ×2 (09:15→20:27)
[2024-11-13] MEDS: PANTOPRAZOLE 40 MG TABLET PO (09:15)
[2024-11-13] MEDS: HEPARIN SOD INJ 5000 UNIT/ML VIAL SC ×2 (09:21→20:29)
[2024-11-13] MEDS: ACETAMINOPHEN 325 MG TABLET 650 MG PO (12:44)
[2024-11-13] MEDS: SODIUM CHLORIDE 0.9% 1000 ML 1,000 ML 999 ML IV (12:45)
[2024-11-13] MEDS: metroNIDAZOLE 250 MG TABLET 500 MG PO ×2 (13:57→21:41)
--- NOTE | 2024-11-13 18:50 | ESPR_ITS ---
<Statement entered by Tanika Pacheco MD - 11/13/24 20:48> Patient was examined bedside this morning, he had rapid response for fever. Was ordered which showed myositis . Will continue IV antibiotics. Pending recs from general surgery. LRINEC score 9 points (CRP- 24.5, wbc- 14,Hb- 8,Na- 131 ,Cr- 1.6 ,Gluc-233 ) . Clinically less likely nec fasc . MRI negative for nec fasc . I discussed with and supervised my co-resident involved in the care of this patient. I agree with the assessment and plan as documented above. Tanika Pacheco,PGY-3 Disclaimer: Despite multiple revisions, due to the dictation software being used, the document below may not be free of grammatical errors including phonetic/typographic errors. However, this does not deter from our commitment to providing health care in the patient's best interest in mind. Documentation for date of: 11/13/24 Subjective Subjective Interval history: Patient was seen at bedside this morning. Overnight patient had a rapid response called due to fever and sepsis alert was initiated. At this time patient's antibiotics was changed to cefepime and Doxy and an MRI of the right lower extremity was ordered. Right lower extremity MRI showed myositis and edema subcutaneous fat tissue. Given concern for compartment syndrome versus possible necrotizing fasciitis general surgery and orthopedic surgery were consulted. Patient's insulin was also adjusted. Patient also requested to have some boost protein drinks as he has been unable to tolerate solid foods for now. No other complaints at this time. Exam Vital Signs Temp Pulse Resp BP Pulse Ox O2 Del Method 98.9 F 89 18 120/67 97 Room Air 11/13/24 16:00 11/13/24 16:11/13/24 16:11/13/24 16:11/13/24 16:11/13/24 16:00 Narrative Exam General: A/O x3, no acute distress, well-nourished, well-developed Eyes: PERRL, EOMI. Anicteric, vision grossly intact. Ears: No ear pain, no ear discharge, Hearing grossly intact. Nose: No nasal discharge. Mouth/Throat: Moist mucous membranes, no redness, no lesions. Neck: Neck supple, non-tender, no cervical lymphadenopathy. Lungs: Clear CHHAYA to auscultation and percussion, No accessory muscle use. Cardio: Normal S1/S2, regular rhythm, no murmurs, no JVD Abdomen: Soft, non-tender, no palpable masses, peristalsis present, no guarding or rebound. Extremities: Symmetrical, no significant deformities, no peripheral edema , non-tender, peripheral pulses presents, multiple toe amputation CHHAYA feet. Tenderness with light palpation in anterior and lateral aspect of R thigh with edema Skin: No rashes, no lesions, warm to touch. Neuro: No focal neurological deficits. motor and sensory intact Psych: Cooperative, appropriate mood and effect. Objective Labs 11/14/24 04:46 11/14/24 04:46 Labs: Laboratory Results - last 24 hr 11/12/24 11/12/24 11/13/24 22:35 22:47 04:37 WBC 14.6 H RBC 2.75 L Hgb 8.1 L Hct 23.4 L MCV 85 MCH 29.5 MCHC 34.6 RDW Std Deviation 37.9 Plt Count 205 Neut % (Auto) 81 H Lymph % (Auto) 6 L [place] % (Auto) 12 Eos % (Auto) 0 Baso % (Auto) 0 Neut # (Auto) 11.8 H Lymph # (Auto) 0.9 L [place] # (Auto) 1.7 H Eos # (Auto) 0.0 Baso # (Auto) 0.0 Immature Gran # (Auto) 0.23 H Absolute Nucleated RBC 0.00 Immature Gran % 2 H Nucleated RBC % 0 PT 12.1 INR 1.1 APTT 36.4 H Sodium 132 L 131 L Potassium 4.2 4.2 Chloride 106 104 Carbon Dioxide 17.8 L 17.9 L Anion Gap 8 9 BUN 43 H 43 H Creatinine 2.2 H 1.9 H Estim Creat Clear Calc 44.2 L 51.2 L eGFR 37 L 44 L BUN/Creatinine Ratio 20 23 H Glucose 206 H D 233 H Calculated Osmolality 281 280 Lactic Acid 0.8 Calcium 8.4 8.3 Corrected Calcium 9.1 Total Bilirubin 0.4 AST < 8 ALT < 7 L Alkaline Phosphatase 94 D C-Reactive Prot, Quant 24.5 H Total Protein 5.3 L Albumin 3.1 L D Globulin 2.2 L Albumin/Globulin Ratio 1.4 Procalcitonin 0.84 H 11/13/24 06:55 WBC 14.0 H RBC 2.73 L Hgb 8.0 L Hct 23.3 L MCV 85 MCH 29.3 MCHC 34.3 RDW Std Deviation 39.0 Plt Count 196 Neut % (Auto) 83 H Lymph % (Auto) 4 L [place] % (Auto) 11 Eos % (Auto) 0 Baso % (Auto) 0 Neut # (Auto) 11.6 H Lymph # (Auto) 0.6 L [place] # (Auto) 1.5 H Eos # (Auto) 0.0 Baso # (Auto) 0.0 Immature Gran # (Auto) 0.26 H Absolute Nucleated RBC 0.00 Immature Gran % 2 H Nucleated RBC % 0 PT INR APTT Sodium Potassium Chloride Carbon Dioxide Anion Gap BUN Creatinine Estim Creat Clear Calc eGFR BUN/Creatinine Ratio Glucose Calculated Osmolality Lactic Acid Calcium Corrected Calcium Total Bilirubin AST ALT Alkaline Phosphatase C-Reactive Prot, Quant Total Protein Albumin Globulin Albumin/Globulin Ratio Procalcitonin Quality Measures Quality Measures VTE prophylaxis Assessment & Plan Assessment Current Active Medications: Generic Name Dose Route Start Last Admin Trade Name Freq PRN Reason Stop Dose Admin Acetaminophen 650 mg 11/11/24 18:26 11/13/24 12:44 Acetaminophen 325 Mg Tablet PO 12/11/24 18:25 650 mg Q6H PRN Administration Fever >100.4 or mild pain 1-3 Atorvastatin Calcium 40 mg 11/11/24 21:00 11/12/24 20:57 Atorvastatin Calcium 20 Mg Tablet PO 12/11/24 20:59 40 mg HS ISABEL Administration Dextrose 25 ml 11/11/24 18:41 Dextrose 50%-Water Inj 50 Ml Syringe IV 12/11/24 18:40 Q15MIN PRN BG 50-70 responsive npo pt Dextrose 50 ml 11/11/24 18:41 Dextrose 50%-Water Inj 50 Ml Syringe IV 12/11/24 18:40 Q15MIN PRN BG <50 OR BG <70 & pt unresponsive Doxycycline Hyclate 100 mg 11/12/24 22:45 11/13/24 09:15 Doxycycline 100 Mg Tablet PO 11/19/24 22:44 100 mg BID ISABEL Administration Heparin Sodium (Porcine) 5,000 unit 11/11/24 21:00 11/13/24 09:21 Heparin Sod Inj 5000 Unit/Ml Vial SC 11/25/24 20:59 5,000 unit Q12HR ISABEL Administration Cefepime HCl 1 gm/ Sodium 50 mls @ 100 mls/hr 11/12/24 22:43 11/13/24 08:02 Chloride IV 11/19/24 22:42 100 mls/hr Q12HR ISABEL Administration Insulin Glargine 45 unit 11/12/24 21:00 11/12/24 20:56 Insulin Glargine (Lantus) 5 Unit/0.05 Ml (Per 5 Units) SC 12/12/24 20:59 45 unit HS ISABEL Administration Insulin Human Lispro 3 unit 11/12/24 12:00 11/13/24 18:21 Insulin Lispro (Admelog) 1 Unit/0.01 Ml Unit SC 12/12/24 11:59 3 unit TIDWM ISABEL Administration Insulin Human Regular 0 unit 11/11/24 21:00 11/13/24 18:21 Insulin Hum Regular 1 Unit/0.01 Ml (Per Unit) SC 12/11/24 20:59 1 unit ACHS ISABEL Administration Protocol Metronidazole 500 mg 11/13/24 14:00 11/13/24 13:57 Metronidazole 250 Mg Tablet PO 11/20/24 13:59 500 mg Q8HR ISABEL Administration Ondansetron HCl 4 mg 11/11/24 18:26 Ondansetron Inj 2 Mg/Ml Inj 2 Ml IV 12/11/24 18:25 Q6H PRN NAUSEA OR VOMITING Protocol Oxycodone/Acetaminophen 1 tab 11/11/24 18:26 11/13/24 18:33 Oxycodone/Apap 5/325 Tablet PO 11/16/24 18:25 1 tab Q6H PRN Administration PAIN SCALE 4-10(Mod-Sev Pantoprazole Sodium 40 mg 11/12/24 09:00 11/13/24 09:15 Pantoprazole 40 Mg Tablet PO 12/12/24 08:59 40 mg QDAY ISABEL Administration Sennosides 1 tab 11/11/24 18:26 Senna Tablet PO 12/11/24 18:25 QDAY PRN constipation Protocol Plan 44-year-old male with past medical history of DM2, hypertension, hyperlipidemia, and multiple amputations was admitted to the hospital on 11/11/2024 due to MARLON along with hematuria, and concerns for sepsis. #Right lower extremity myositis #Concern for compartment syndrome versus necrotizing fasciitis #ground-level fall ?Initial knee x-ray was unremarkable ?Venous Doppler was negative for DVT ? Soft tissue ultrasound did not show any hematoma or cystic mass on the posterior right knee ? Lower extremity CT showed mild edema in the subcutaneous fatty tissue with the mid and lower thigh with no soft tissue abscess and intact knee bones. ? Lower extremity MRI showed edema and subcutaneous fatty tissue of the anterior medial and lateral thigh along with significant myositis of the thigh ? DDx compartment syndrome less likely as patient does not have any sensorial deficits and has good peripheral pulses and no discoloration of the lower extremity versus necrotizing fasciitis also less likely given that patient's pain is localized and there are no signs of gas in imaging. Plan: ? Continue Percocet 5/325 Q6 for pain management ?Will continue cefepime, doxycycline, and Flagyl for now ? Consulted general surgery, appreciate commendations ? Consulted orthopedic surgery, recommendations ? Will continue to monitor #Concern for sepsis #Leukocytosis ?Patient's WBC on admission was 14.3 and today is 14 ? CRP initially was 27 and down trended to 24.5 ? Procalcitonin was 0.74 and up trended to 0.84 ? Lactic acid 0.8 ? UA did not show any bacteria or leukocytes esterase ? Abdomen/pelvis CT showed some perinephric stranding which could indicate UTI as well as some rectal wall thickening which could indicate some proctitis as possible sources of leukocytosis and possible sepsis. ? Patient developed a fever overnight along with tachycardia, therefore meets SIRS criteria 3 out of 4 with tachycardia, fevers, and WBC ? Received 2 L boluses overnight Plan: ? Continue cefepime, doxycycline, and Flagyl [11/12/2024?] ?Additional 1 L bolus of normal saline today ?Will continue to monitor #MARLON ?Patient's baseline creatinine was 1 on 06/2024 ? Creatinine on admission was 2.3 ? Creatinine today 1.9 ? Likely prerenal versus postrenal due to obstruction Plan: -IV fluids ? Avoid nephrotoxic agents ? Renally dose medication ? Will continue to monitor #Hx of DM2 ?A1c 12 on 11/11/2024 Plan: ?Glargine 45 units at bedtime ? Lispro 3 units 3 times daily with meals ? ISS ?Accu-Cheks and hypoglycemia protocol ordered ? Will continue to monitor #Chronic normocytic normochromic anemia ?patient's baseline hemoglobin is around 9 ? On admission patient hemoglobin was 10 and today hemoglobin is 8 ? Most likely hemodilutional as patient has gone to multiple boluses Plan: ? Will transfuse if hemoglobin less than 7 ? Will continue to monitor #Hx of hypertension #Hx of hyperlipidemia ?Continue patient's atorvastatin 40 mg at bedtime ? Holding antihypertensive medication for now as blood pressure has been controlled during hospital stay and patient has an active infection Disposition: Patient seen in [facility], pending general surgery recs and orthopedic recs, continue Abx. Diet: Boost plus, Carb low GI prophylaxis: protonix DVT prophylaxis: Heparin Code: Full Case disclosed with Attending Dr. Guerin and My senior Dr. Pacheco PGY3. Ralph Lopez PGY1 Attending Provider Attestation/Addendum I have discussed and was present for the essential components of the history, physical examination, diagnosis, and treatment plan with the resident. I agree with the patient's care as documented by the resident and amended herein by me. Sadiq Guerin, DO. Although this document has been carefully reviewed, there may still be some phonetic and other typographical errors. These errors are purely grammatical due to imperfections in the software program and should not be construed in any way to compromise the substance of the patient's medical care during this visit.
[2024-11-13] MEDS: ATORVASTATIN CALCIUM 20 MG TABLET 40 MG PO (20:27)
[2024-11-13] MEDS: INSULIN GLARGINE (Lantus) 5 UNIT/0.05 ML (PER 5 UNITS) 45 UNIT SC (20:32)
--- NOTE | 2024-11-13 20:52 | PD.ORTHCON ---
HPI Consult details Reason for consultation narrative: Pain right thigh History of present illness: Patient fell on both lower extremities and backyard. Within 24 hours increasing pain right thigh. Induration right thigh. Because of pain presented to the ER and was admitted [facility] was consulted today 11/13/2024. No complaints of pain in right knee without swelling Missing toes of right foot secondary to amputation. Has history of diabetes and also amputations of toes left foot Past Medical History Past Medical History NEUROLOGIC: Negative Neurological Disorders or Seizures CARDIAC: Positive Cardiac Disorders and Hypercholesterolemia; Negative Congestive Heart Failure RESPIRATORY: Negative Respiratory Disorders or Chronic Obstructive Pulmonary Disease (COPD) GASTROINTESTINAL: Negative Gastrointestinal Disorders GENITOURINARY: Negative Genitourinary Disorders or Renal Disease MUSCULOSKELETAL: Positive Osteomyelitis; Negative Musculoskeletal Disorders ENDOCRINE: Positive Endocrine Disorders and Diabetes Mellitus Type 2; Negative Diabetes Mellitus Type 1 HEMATOLOGIC: Negative Blood Disorders OTHER HISTORY: Negative Autoimmune Disease, Blood Transfusions, Blood Transfusion Reaction, Anesthesia Reactions or Organ Transplant Family History FAMILY HISTORY: Negative Family Psychiatric Problems, Family Respiratory Disorders, Family Cardiac Disorders, Family Gastrointestinal Problems, Family Cancer, Family Surgery or Family Anesthesia Reaction Surgical History SURGICAL: Positive Amputation; Negative Cardiac Surgery, Endocrine Surgery, Ear Surgery, Abdominal Surgery, Nephrectomy, Neurologic Surgery or Organ Transplant Social History SMOKING STATUS: Current some day smoker SECOND HAND EXPOSURE: No SUBSTANCE USE: does not use Meds Home Medications and Allergies Home Medications ?Medication ?Instructions ?Recorded ?Confirmed ?Type insulin glargine 100 unit/mL (3 60 unit subcut HS 08/03/19 11/11/24 History mL) subcutaneous pen (Lantus Solostar U-100 Insulin) insulin lispro 200 unit/mL (3 mL) 1 sliding scale dose subcut 06/24/24 11/11/24 History subcutaneous pen (Humalog KwikPen USEASDIRECTD U-200 Insulin) Allergies Allergy/AdvReac Type Severity Reaction Status Date / Time No Known Allergies Allergy Verified 11/11/24 13:09 Exam Vital Signs Temp Pulse Resp BP Pulse Ox O2 Del Method 98.9 F 89 18 120/67 97 Room Air 11/13/24 16:00 11/13/24 16:00 11/13/24 16:00 11/13/24 16:00 11/13/24 16:00 11/13/24 16:00 Temperature 98.9, blood pressure 120/67 Narrative Exam Patient alert and oriented. No complaints of pain upper extremities or left lower extremity Examination right lower extremity shows the absence of toes right foot no swelling right leg. No effusion right knee. Patient has induration lateral aspect right thigh. No fluctuance. Results - Ortho Labs 11/13/24 06:55 11/13/24 04:37 Labs: Short CBC 11/12/24 11/13/24 Range/Units 22:35 06:55 WBC 14.6 H 14.0 H (3.8-10.6) Thou/mm3 Hgb 8.1 L 8.0 L (13.5-16.0) g/dL Hct 23.4 L 23.3 L (41.0-53.0) % Plt Count 205 196 (140-440) Thou/mm3 BMP 11/12/24 11/13/24 22:47 04:37 Sodium 132 L 131 L Potassium 4.2 4.2 Chloride 106 104 Carbon Dioxide 17.8 L 17.9 L BUN 43 H 43 H Creatinine 2.2 H 1.9 H Glucose 206 H D 233 H Calcium 8.4 8.3 Liver Function 11/12/24 Range/Units 22:47 Total Bilirubin 0.4 (0.3-1.2) mg/dL AST < 8 (0-34) U/L ALT < 7 L (10-49) U/L Alkaline Phosphatase 94 D (46-116) U/L Albumin 3.1 L D (3.5-5.0) gm/dL White count from 14,600-14,000 Assessment & Plan Additional Assessment Additional comments: MRI scan shows inflammation soft tissue right thigh. No abscess. No osteomyelitis Plan Patient appears to have cellulitis. I will contact Dr Castillo for the ideal combination. Josafat usually performs abscesses. It would be very nice to have Dr. Maharaj take a look. Does not look like he needs a drainage procedure. It has been very painful. Strep can be very painful. Would recommend higher dose of the oxycodone and more frequent. I would recommend Movantik if no contraindications to avoid constipation. He has been nauseated. What about Zofran?
[2024-11-14] VITALS: BP 101/63; PULSE 82; PULSE 87; RESP 17; TEMP 37.4; O2SAT 95
[2024-11-14 04:00] VITALS: BP 128/72; PULSE 83; PULSE 92; RESP 16; TEMP 37.6; O2SAT 97
[2024-11-14] MEDS: metroNIDAZOLE 250 MG TABLET 500 MG PO (05:03)
[2024-11-14 05:41] LABS: Basophils % (Auto) 0 % (0-2.5); Eosinophils # (Auto) 0.1 Thou/mm3 (0.0-0.5); Eosinophils % (Auto) 1 % (0-10); Hematocrit 23.4 % (41.0-53.0); Immature Granulocytes % (Auto) 3 % (0-0); Immature Granulocytes Auto 0.41 Thou/mm3 (0.00-0.00); Lymphocytes % (Auto) 7 % (10-50); Mean Corpuscular HGB Conc 33.8 g/dl (31.0-37.0); Mean Corpuscular Hemoglobin 29.4 pg (25.0-35.0); Mean Corpuscular Volume 87 fL (80-100); Monocytes # (Auto) 1.6 Thou/mm3 (0.0-0.8); Monocytes % (Auto) 11 % (0-12); Neutrophils # (Auto) 11.6 Thou/mm3 (1.8-7.7); Neutrophils % (Auto) 79 % (37-80); Nucleated Red Blood Cell % 0 /100 WBC (0); Platelet Count 230 Thou/mm3 (140-440); RDW Standard Deviation 40.3 fL (35.1-43.9); Red Blood Count 2.69 Miln/mm3 (4.50-5.90); White Blood Count 14.8 Thou/mm3 (3.8-10.6)
[2024-11-14 05:46] LABS: Hemoglobin 7.9 g/dL (13.5-16.0)
[2024-11-14 05:58] LABS: Anion Gap 8 (7-16); BUN/Creatinine Ratio 22 Ratio (12-20); Blood Urea Nitrogen 39 mg/dL (9-23); Calcium 8.6 mg/dL (8.3-10.6); Carbon Dioxide 20.5 mMol/L (20.0-31.0); Chloride 107 mMol/L (98-107); Creatinine (Component) 1.8 mg/dL (0.6-1.3); Estimated Creatinine Clearance 54.1 mL/min (>60); Glucose 90 mg/dL (74-106); Osmolality,Calculated 279 (275-295); Potassium 4.4 mMol/L (3.4-5.1); Sodium 135 mMol/L (136-145); eGFR 47 See Note
[2024-11-14 08:00] VITALS: BP 134/73; PULSE 87; PULSE 90; RESP 18; TEMP 37.3; O2SAT 96
[2024-11-14] MEDS: DOXYCYCLINE 100 MG TABLET PO ×2 (09:14→22:49)
[2024-11-14] MEDS: HEPARIN SOD INJ 5000 UNIT/ML VIAL SC ×2 (09:15→22:57)
[2024-11-14] MEDS: PANTOPRAZOLE 40 MG TABLET PO (09:15)
[2024-11-14] MEDS: FERROUS SULF 325 MG TABLET PO (09:15)
[2024-11-14] MEDS: RINGERS LACTATED 1000 ML 1,000 ML 999 ML IV (09:16)
[2024-11-14 12:00] VITALS: BP 113/60; PULSE 81; PULSE 84; RESP 20; TEMP 36.9; O2SAT 96
[2024-11-14] MEDS: INSULIN LISPRO (AdmeLOG) 1 UNIT/0.01 ML UNIT 3 UNIT SC (12:45)
--- NOTE | 2024-11-14 12:48 | PD.SURCONS ---
HPI Consult details History of present illness: 44M with HTN, HLD, DMII who presented 11/11 with RLE pain after a fall, with MRI findings of myositis of the right thigh. This morning pt reports feeling well overall with much less pain than on presentation, though he is still unable to bear weight. WBC is 14.8 from 14 Review of Systems Review of Systems ROS Unobtainable: All systems reviewed & no additional complaints except as documented Meds Home Medications and Allergies Home Medications ?Medication ?Instructions ?Recorded ?Confirmed ?Type insulin glargine 100 unit/mL (3 60 unit subcut HS 08/03/19 11/11/24 History mL) subcutaneous pen (Lantus Solostar U-100 Insulin) insulin lispro 200 unit/mL (3 mL) 1 sliding scale dose subcut 06/24/24 11/11/24 History subcutaneous pen (Humalog KwikPen USEASDIRECTD U-200 Insulin) Allergies Allergy/AdvReac Type Severity Reaction Status Date / Time No Known Allergies Allergy Verified 11/11/24 13:09 Exam Vital Signs Temp Pulse Resp BP Pulse Ox O2 Del Method 98.5 F 81 20 113/60 96 Room Air 11/14/24 12:00 11/14/24 12:00 11/14/24 12:00 11/14/24 12:00 11/14/24 12:11/14/24 12:00 Constitutional Constitutional: no acute distress Routine Respiratory Exam Respiratory: Present no resp distress Routine Extremities Exam Comments: right thigh induration at the lateral aspect, no erythema, no fluctuance, mild tenderness, no pain out of proportion Results Results: Laboratory Laboratory results: results reviewed Results: Imaging Imaging narrative: MRI reviewed Assessment & Plan Plan 44M with HTN, HLD, DMII presenting with R thigh myositis after a fall, no signs of compartment syndrome, no abscesses or cellulitis on exam No surgical intervention needed Please reconsult with concerns or questions
--- NOTE | 2024-11-14 14:20 | ESPR_ITS ---
Documentation for date of: 11/14/24 Subjective Subjective Interval history: Patient was seen at bedside this morning. No overnight events. Patient's initial blood cultures were negative at 24 hours and Flagyl and cefepime were discontinued. Patient remains on doxycycline for now. General surgery saw the patient and did not seem it necessary for any surgical intervention for now as there was no signs of compartment syndrome's abscess or cellulitis on their exam. Will monitor the patient overnight for any spikes in fevers or WBCs. No other complaints at this time. Patient states that he is a little nauseated due to his pain, but is controllable. Patient was constipated has not had a bowel movement in the past 3 days which could also be contributing to his nausea. Gave patient lactulose and senna and if no improvement will prescribe Movantik. Exam Vital Signs Temp Pulse Resp BP Pulse Ox O2 Del Method 98.5 F 81 20 113/60 96 Room Air 11/14/24 12:00 11/14/24 12:00 11/14/24 12:00 11/14/24 12:00 11/14/24 12:00 11/14/24 12:00 Narrative Exam General: A/O x3, no acute distress, well-nourished, well-developed Eyes: PERRL, EOMI. Anicteric, vision grossly intact. Ears: No ear pain, no ear discharge, Hearing grossly intact. Nose: No nasal discharge. Mouth/Throat: Moist mucous membranes, no redness, no lesions. Neck: Neck supple, non-tender, no cervical lymphadenopathy. Lungs: Clear CHHAYA to auscultation and percussion, No accessory muscle use. Cardio: Normal S1/S2, regular rhythm, no murmurs, no JVD. Abdomen: Soft, non-tender, no palpable masses, peristalsis present, no guarding or rebound. Extremities: Symmetrical, no significant deformities, no peripheral edema , non-tender, peripheral pulses presents, multiple toe amputation CHHAYA feet. Tenderness with light palpation in anterior and lateral aspect of R thigh with edema when compared to L thigh. Skin: No rashes, no lesions, warm to touch. Neuro: No focal neurological deficits. motor and sensory intact Psych: Cooperative, appropriate mood and effect. Objective Labs 11/14/24 04:46 11/14/24 04:46 Labs: Laboratory Results - last 24 hr 11/14/24 04:46 WBC 14.8 H RBC 2.69 L Hgb 7.9 L Hct 23.4 L MCV 87 MCH 29.4 MCHC 33.8 RDW Std Deviation 40.3 Plt Count 230 D Neut % (Auto) 79 Lymph % (Auto) 7 L [place] % (Auto) 11 Eos % (Auto) 1 Baso % (Auto) 0 Neut # (Auto) 11.6 H Lymph # (Auto) 1.0 [place] # (Auto) 1.6 H Eos # (Auto) 0.1 Baso # (Auto) 0.0 Immature Gran # (Auto) 0.41 H Absolute Nucleated RBC 0.00 Immature Gran % 3 H Nucleated RBC % 0 Sodium 135 L Potassium 4.4 Chloride 107 Carbon Dioxide 20.5 Anion Gap 8 BUN 39 H Creatinine 1.8 H Estim Creat Clear Calc 54.1 L eGFR 47 L BUN/Creatinine Ratio 22 H Glucose 90 D Calculated Osmolality 279 Calcium 8.6 Quality Measures Quality Measures VTE prophylaxis Assessment & Plan Assessment Current Active Medications: Generic Name Dose Route Start Last Admin Trade Name Juan Miguelq PRN Reason Stop Dose Admin Acetaminophen 650 mg 11/11/24 18:26 11/13/24 12:44 Acetaminophen 325 Mg Tablet PO 12/11/24 18:25 650 mg Q6H PRN Administration Fever >100.4 or mild pain 1-3 Atorvastatin Calcium 40 mg 11/11/24 21:00 11/13/24 20:27 Atorvastatin Calcium 20 Mg Tablet PO 12/11/24 20:59 40 mg HS ISABEL Administration Dextrose 25 ml 11/14/24 09:00 Dextrose 50%-Water Inj 50 Ml Syringe IV 12/14/24 08:59 Q15MIN PRN BG 50-70 responsive npo pt Dextrose 50 ml 11/14/24 09:00 Dextrose 50%-Water Inj 50 Ml Syringe IV 12/14/24 08:59 Q15MIN PRN BG <50 OR BG <70 & pt unresponsive Doxycycline Hyclate 100 mg 11/12/24 22:45 11/14/24 09:14 Doxycycline 100 Mg Tablet PO 11/19/24 22:44 100 mg BID ISABEL Administration Erythromycin Ethylsuccinate 200 mg 11/14/24 12:00 11/14/24 14:11 Erythromycin E-Succ Susp 200 Mg/5 Ml PO 11/21/24 11:59 Not Given TIDWM ISABEL Ferrous Sulfate 325 mg 11/14/24 09:00 11/14/24 09:15 Ferrous Sulf 325 Mg Tablet PO 12/14/24 08:59 325 mg QDAY ISABEL Administration Glucagon 1 mg 11/14/24 09:00 Glucagon Inj 1 Mg Vial IM Q15MIN PRN BG <70, and no IV access Heparin Sodium (Porcine) 5,000 unit 11/11/24 21:00 11/14/24 09:15 Heparin Sod Inj 5000 Unit/Ml Vial SC 11/25/24 20:59 5,000 unit Q12HR ISABEL Administration Hydromorphone HCl 2 mg 11/14/24 08:54 Hydromorphone Hcl 2 Mg Tablet PO 11/19/24 08:53 Q4HR PRN Pain severe 7-10 Insulin Glargine 35 unit 11/14/24 21:00 Insulin Glargine (Lantus) 5 Unit/0.05 Ml (Per 5 Units) SC 12/14/24 20:59 HS ISABEL Insulin Human Lispro 3 unit 11/12/24 12:00 11/14/24 12:45 Insulin Lispro (Admelog) 1 Unit/0.01 Ml Unit SC 12/12/24 11:59 3 unit TIDWM ISABEL Administration Insulin Human Lispro 0 unit 11/14/24 11:30 11/14/24 11:53 Insulin Lispro (Admelog) 1 Unit/0.01 Ml Unit SC 12/14/24 11:29 Not Given ACHS [facility] Protocol Metoclopramide HCl 5 mg 11/14/24 12:00 11/14/24 14:11 Metoclopramide Inj 5 Mg/Ml Vial 2 Ml IVP 12/14/24 11:59 Not Given TIDWM [facility] Protocol Ondansetron HCl 4 mg 11/11/24 18:26 Ondansetron Inj 2 Mg/Ml Inj 2 Ml IV 12/11/24 18:25 Q6H PRN NAUSEA OR VOMITING Protocol Pantoprazole Sodium 40 mg 11/12/24 09:00 11/14/24 09:15 Pantoprazole 40 Mg Tablet PO 12/12/24 08:59 40 mg QDAY ISABEL Administration Sennosides 1 tab 11/11/24 18:26 Senna Tablet PO 12/11/24 18:25 QDAY PRN constipation Protocol Plan 44-year-old male with past medical history of DM2, hypertension, hyperlipidemia, and multiple amputations was admitted to the hospital on 11/11/2024 due to MARLON along with hematuria, and concerns for sepsis. #Right lower extremity myositis #Myositis #ground-level fall ?Initial knee x-ray was unremarkable ?Venous Doppler was negative for DVT ? Soft tissue ultrasound did not show any hematoma or cystic mass on the posterior right knee ? Lower extremity CT showed mild edema in the subcutaneous fatty tissue with the mid and lower thigh with no soft tissue abscess and intact knee bones. ? Lower extremity MRI showed edema and subcutaneous fatty tissue of the anterior medial and lateral thigh along with significant myositis of the thigh ? DDx compartment syndrome less likely as patient does not have any sensorial deficits and has good peripheral pulses and no discoloration of the lower extremity versus necrotizing fasciitis also less likely given that patient's pain is localized and there are no signs of gas in imaging. -Surgery stated no need for surgical intervention now given that it is not compartment syndrome or abscess. -Flagyl and cefepime were discontinued Plan: ? Continue Percocet 5/325 Q6 for pain management ?Will continue with doxycycline for now ? Consulted general surgery, appreciate commendations ? Consulted orthopedic surgery, recommendations ? Will continue to monitor #Concern for sepsis #Leukocytosis ?Patient's WBC on admission was 14.3 and today is 14.8 ? On admission CRP initially was 27 and down trended to 24.5 ? On admission Procalcitonin was 0.74 and up trended to 0.84 ? On admission Lactic acid 0.8 ? UA did not show any bacteria or leukocytes esterase ? Abdomen/pelvis CT showed some perinephric stranding which could indicate UTI as well as some rectal wall thickening which could indicate some proctitis as possible sources of leukocytosis and possible sepsis. ? Patient developed a fever overnight along with tachycardia, therefore meets SIRS criteria 3 out of 4 with tachycardia, fevers, and WBC ? Received 2 L boluses overnight -Flagyl and cefepime were discontinued Plan: ? Continue doxycycline [11/12/2024?] ?Additional 1 L bolus of normal saline today again. ?Will continue to monitor #MARLON ?Patient's baseline creatinine was 1 on 06/2024 ? Creatinine on admission was 2.3 ? Creatinine today 1.8 ? Likely prerenal versus postrenal due to obstruction Plan: -IV fluids ? Avoid nephrotoxic agents ? Renally dose medication ? Will continue to monitor #Constipation #Nausea ? Patient was constipated has not had a bowel movement in the past 3 days which could also be contributing to his nausea. Plan: ? Gave patient lactulose and senna and if no improvement will prescribe Movantik. ?Zofran as needed #Hx of DM2 ?A1c 12 on 11/11/2024 Plan: ?Glargine 35 units at bedtime ? Lispro 3 units 3 times daily with meals ? ISS ?Accu-Cheks and hypoglycemia protocol ordered ? Will continue to monitor #Chronic normocytic normochromic anemia ?patient's baseline hemoglobin is around 9 ? On admission patient hemoglobin was 10 and today hemoglobin is 7.9 ? Most likely hemodilutional as patient has gone to multiple boluses Plan: ? Will transfuse if hemoglobin less than 7 ? Will continue to monitor #Hx of hypertension #Hx of hyperlipidemia ?Continue patient's atorvastatin 40 mg at bedtime ? Holding antihypertensive medication for now as blood pressure has been controlled during hospital stay and patient has an active infection Disposition: Patient seen in [facility] continue Abx. Diet: Boost plus, Carb low GI prophylaxis: protonix DVT prophylaxis: Heparin Code: Full Case disclosed with Attending Dr. Apoorva Lopez PGY1 Attending Provider Attestation/Addendum I have discussed and was present for the essential components of the history, physical examination, diagnosis, and treatment plan with the resident. I agree with the patient's care as documented by the resident and amended herein by me. Sadiq Guerin DO. Patient seen and evaluated this AM. In Short, patient is a 44-year-old male with a significant past medical history of uncontrolled diabetes, hypertension, hyperlipidemia and multiple bilateral foot amputations who was admitted on 11/11 due to unrelenting right thigh pain which she incurred after a ground-level fall and MARLON with associated hematuria. No acute events overnight, vital signs stable, patient afebrile, significant labs clued WBC of 15, hemoglobin stable at 8, BUN 39 and improved creatinine at 1.8 today, slowly downtrending. Blood cultures have been negative to date, urine cultures also unremarkable however cultures were drawn after antibiotics started. Will de-escalate antibiotics stated doxycycline 100 mg twice daily for any potential cellulitis that may have occurred in the patient's thigh. Imaging did demonstrate significant myositis, orthopedic surgery was consulted who recommended general surgery consult who saw the patient today and was not impressed, no surgical intervention required at this time. I am hesitant to give the patient's NSAIDs at this time due to MARLON hence we will continue Dilaudid for now. Likely discharge on 11/15 pending further improvement, patient may need home health PT. blood glucose is also been controlled overnight with basal bolus insulin, will titrate as necessary. Medications: Atorvastatin 40 mg nightly Doxycycline 100 mg p.o. twice daily Ferrous sulfate 325 mg daily Dilaudid 2 mg p.o. every 4 hours as needed Lantus 35 units at bedtime Lispro 3 units 3 times daily AC SSI Zofran as needed Protonix 40 mg daily Although this document has been carefully reviewed, there may still be some phonetic and other typographical errors. These errors are purely grammatical due to imperfections in the software program and should not be construed in any way to compromise the substance of the patient's medical care during this visit.
[2024-11-14] MEDS: SENNA TABLET 1 TAB PO (14:57)
[2024-11-14] MEDS: LACTULOSE SYRUP 20 GM/30 ML UDC PO (14:57)
[2024-11-14 16:00] VITALS: BP 140/70; PULSE 83; PULSE 88; RESP 18; TEMP 37.6; O2SAT 96
[2024-11-14] MEDS: HYDROMORPHONE HCL 2 MG TABLET PO (19:30)
[2024-11-14 20:00] VITALS: BP 141/85; PULSE 88; PULSE 90; RESP 18; TEMP 37.7; O2SAT 93
--- NOTE | 2024-11-14 20:47 | CONPN_ITS ---
Subjective Subjective Brief History: Patient fell on both lower extremities and backyard. Within 24 hours increasing pain right thigh. Induration right thigh. Because of pain presented to the ER and was admitted New Year's Day was consulted today 11/13/2024. No complaints of pain in right knee without swelling Missing toes of right foot secondary to amputation. Has history of diabetes and also amputations of toes left foot Narrative: Had much less pain today. He then had a number of people come in and examine his right thigh pressing on it firmly and now has much more pain. Exam Vital Signs Temp Pulse Resp BP Pulse Ox O2 Del Method 99.7 F 83 18 140/70 H 96 Room Air 11/14/24 16:00 11/14/24 16:00 11/14/24 16:00 11/14/24 16:00 11/14/24 16:00 11/14/24 16:00 Temp 99.7 Narrative Exam Has more induration and redness. No effusion of the right knee active flexion extension right ankle absence of midfoot on Objective - Ortho Labs 11/14/24 04:46 11/14/24 04:46 Labs: Laboratory Results - last 24 hr 11/14/24 04:46 WBC 14.8 H RBC 2.69 L Hgb 7.9 L Hct 23.4 L MCV 87 MCH 29.4 MCHC 33.8 RDW Std Deviation 40.3 Plt Count 230 D Neut % (Auto) 79 Lymph % (Auto) 7 L [place] % (Auto) 11 Eos % (Auto) 1 Baso % (Auto) 0 Neut # (Auto) 11.6 H Lymph # (Auto) 1.0 [place] # (Auto) 1.6 H Eos # (Auto) 0.1 Baso # (Auto) 0.0 Immature Gran # (Auto) 0.41 H Absolute Nucleated RBC 0.00 Immature Gran % 3 H Nucleated RBC % 0 Sodium 135 L Potassium 4.4 Chloride 107 Carbon Dioxide 20.5 Anion Gap 8 BUN 39 H Creatinine 1.8 H Estim Creat Clear Calc 54.1 L eGFR 47 L BUN/Creatinine Ratio 22 H Glucose 90 D Calculated Osmolality 279 Calcium 8.6 Creatinine 1.8 white count 4800 Assessment & Plan Assessment Additional comments: Has been more comfortable today. That is a good sign. Seen by Dr. Maharaj who felt there was nothing that needed surgery and I would agree Plan Reconsult if necessary Documentation for date of: 11/14/24
[2024-11-14] MEDS: ATORVASTATIN CALCIUM 20 MG TABLET 40 MG PO (22:49)
[2024-11-14] MEDS: INSULIN LISPRO (AdmeLOG) 1 UNIT/0.01 ML UNIT SC (23:06)
[2024-11-15] VITALS (7 sets, daily range): BP systolic 100–154; BP diastolic 73–89; PULSE 73–89; RESP 16–21; TEMP 36.5–37.3; O2SAT 94–98
[2024-11-15] MEDS: INSULIN LISPRO (AdmeLOG) 1 UNIT/0.01 ML UNIT 3 UNIT SC (07:52)
[2024-11-15] MEDS: INSULIN LISPRO (AdmeLOG) 1 UNIT/0.01 ML UNIT SC ×2 (07:53→21:32)
[2024-11-15] MEDS: FERROUS SULF 325 MG TABLET PO (08:00)
[2024-11-15] MEDS: DOXYCYCLINE 100 MG TABLET PO ×2 (08:00→21:20)
[2024-11-15] MEDS: HEPARIN SOD INJ 5000 UNIT/ML VIAL SC ×2 (08:00→21:22)
[2024-11-15] MEDS: PANTOPRAZOLE 40 MG TABLET PO (08:00)
--- NOTE | 2024-11-15 13:56 | PD.RESPRO ---
Documentation for date of: 11/15/24 Subjective Subjective Interval history: No overnight events. Still has been moderate pain of right thigh. Poor appetite due to nausea in settings of pain. No bowel movement yet, but does not feel constipated. Denies fever, chills, headaches, chest pain, sob, cough, GI or urinary symptoms. Exam Vital Signs Temp Pulse Resp BP Pulse Ox O2 Del Method 98.7 F 80 17 117/84 98 Room Air 11/15/24 12:00 11/15/24 12:00 11/15/24 12:00 11/15/24 12:11/15/24 12:11/15/24 12:00 Narrative Exam General: A/O x3, no acute distress, well-nourished, well-developed Eyes: PERRL, EOMI. Anicteric, vision grossly intact. Ears: No ear pain, no ear discharge, Hearing grossly intact. Nose: No nasal discharge. Mouth/Throat: Moist mucous membranes, no redness, no lesions. Neck: Neck supple, non-tender, no cervical lymphadenopathy. Lungs: Clear CHHAYA to auscultation and percussion, No accessory muscle use. Cardio: Normal S1/S2, regular rhythm, no murmurs, no JVD. Abdomen: Soft, non-tender, no palpable masses, peristalsis present, no guarding or rebound. Extremities: Symmetrical, no significant deformities, no peripheral edema , non-tender, peripheral pulses presents, multiple toe amputation CHHAYA feet. Tenderness with light palpation in anterior and lateral aspect of R thigh with edema when compared to L thigh. Skin: No rashes, no lesions, warm to touch. Neuro: No focal neurological deficits. motor and sensory intact Psych: Cooperative, appropriate mood and effect. Objective Labs 11/14/24 04:46 11/14/24 04:46 Quality Measures Quality Measures VTE prophylaxis Assessment & Plan Assessment Current Active Medications: Generic Name Dose Route Start Last Admin Trade Name Freq PRN Reason Stop Dose Admin Acetaminophen 650 mg 11/11/24 18:26 11/13/24 12:44 Acetaminophen 325 Mg Tablet PO 12/11/24 18:25 650 mg Q6H PRN Administration Fever >100.4 or mild pain 1-3 Atorvastatin Calcium 40 mg 11/11/24 21:00 11/14/24 22:49 Atorvastatin Calcium 20 Mg Tablet PO 12/11/24 20:59 40 mg HS ISABEL Administration Dextrose 25 ml 11/14/24 09:00 Dextrose 50%-Water Inj 50 Ml Syringe IV 12/14/24 08:59 Q15MIN PRN BG 50-70 responsive npo pt Dextrose 50 ml 11/14/24 09:00 Dextrose 50%-Water Inj 50 Ml Syringe IV 12/14/24 08:59 Q15MIN PRN BG <50 OR BG <70 & pt unresponsive Doxycycline Hyclate 100 mg 11/12/24 22:45 11/15/24 08:00 Doxycycline 100 Mg Tablet PO 11/19/24 22:44 100 mg BID ISABEL Administration Ferrous Sulfate 325 mg 11/14/24 09:00 11/15/24 08:00 Ferrous Sulf 325 Mg Tablet PO 12/14/24 08:59 325 mg QDAY ISABEL Administration Glucagon 1 mg 11/14/24 09:00 Glucagon Inj 1 Mg Vial IM Q15MIN PRN BG <70, and no IV access Heparin Sodium (Porcine) 5,000 unit 11/11/24 21:00 11/15/24 08:00 Heparin Sod Inj 5000 Unit/Ml Vial SC 11/25/24 20:59 5,000 unit Q12HR ISABEL Administration Hydromorphone HCl 2 mg 11/14/24 08:54 11/14/24 19:30 Hydromorphone Hcl 2 Mg Tablet PO 11/19/24 08:53 2 mg Q4HR PRN Administration Pain severe 7-10 Insulin Glargine 35 unit 11/14/24 21:00 11/14/24 22:53 Insulin Glargine (Lantus) 5 Unit/0.05 Ml (Per 5 Units) SC 12/14/24 20:59 Not Given [facility] Insulin Human Lispro 3 unit 11/12/24 12:00 11/15/24 11:45 Insulin Lispro (Admelog) 1 Unit/0.01 Ml Unit SC 12/12/24 11:59 Not Given TIDWM ISABEL Insulin Human Lispro 0 unit 11/14/24 11:30 11/15/24 11:43 Insulin Lispro (Admelog) 1 Unit/0.01 Ml Unit SC 12/14/24 11:29 Not Given ACHS [facility] Protocol Ondansetron HCl 4 mg 11/11/24 18:26 Ondansetron Inj 2 Mg/Ml Inj 2 Ml IV 12/11/24 18:25 Q6H PRN NAUSEA OR VOMITING Protocol Pantoprazole Sodium 40 mg 11/12/24 09:00 11/15/24 08:00 Pantoprazole 40 Mg Tablet PO 12/12/24 08:59 40 mg QDAY ISABEL Administration Sennosides 1 tab 11/11/24 18:26 Senna Tablet PO 12/11/24 18:25 QDAY PRN constipation Protocol Plan 44-year-old male with past medical history of DM2, hypertension, hyperlipidemia, and multiple amputations was admitted to the hospital on 11/11/2024 due to MARLON along with hematuria, and concerns for sepsis. Current workup points towards right thigh myositis. Patient still has substantial pain with current regimen. Currently endorsing intractable nausea and vomiting as a result of pain. Continued management # Intractable pain 12/13: # Right lower extremity myositis # Myositis # ground-level fall ?Initial knee x-ray was unremarkable ?Venous Doppler was negative for DVT ? Soft tissue ultrasound did not show any hematoma or cystic mass on the posterior right knee ? Lower extremity CT showed mild edema in the subcutaneous fatty tissue with the mid and lower thigh with no soft tissue abscess and intact knee bones. ? Lower extremity MRI showed edema and subcutaneous fatty tissue of the anterior medial and lateral thigh along with significant myositis of the thigh ? DDx compartment syndrome less likely as patient does not have any sensorial deficits and has good peripheral pulses and no discoloration of the lower extremity versus necrotizing fasciitis also less likely given that patient's pain is localized and there are no signs of gas in imaging. -Surgery stated no need for surgical intervention now given that it is not compartment syndrome or abscess. -Flagyl and cefepime were discontinued ? Pain poorly controlled with current regimen, adjusted meds as below Plan: ? Increased DILAUDID to 3 mg p.o. Q4H ? Will continue with doxycycline for now ? Will continue to monitor ? Physical therapy # Leukocytosis (stable) # Sepsis ruled out Suspected sepsis on admission, 3/4 SIRS positive with tachycardia, fever and WBC. Admission WBCs 14.3, consistently around this range on repeat labs. Continues afebrile, no tachycardia., 48-hour blood culture negative. CT suggested possible UTI with perinpehric stranding, he is asymptomatic, urine culture negative. CRP peaked at 27, downtrending. Calcitonin 0.74 > 0.84. S/p 3 L boluses. Most likely reactive in settings of myositis. Was on FLAGYL and CEFEPIME. Will continue DOXYCYCLINE as above. ? Continue doxycycline [11/12/2024?] ? Daily labs Prerenal MARLON (improving) Likely 2/2 dehydration. Admission CR 2.8 (baseline 1.0), improved with fluids, CR 1.8 today. ? Renally dose meds, avoid overdiuresis and NEPHROTOXINS Intractable N/V Constipation Endorsing nausea and poor appetite in settings of pain. No bowel movement yet despite LACTULOSE x 1. Does not feel constipated at this time. ? ZOFRAN primary ? Switch senna from PRN to scheduled daily ? Consider MOVANTIK for persistent constipation #Hx of DM2 A1c 12 this visit. Not received INSULIN overnight due to poor oral intake. GLUCOSE 90 this morning. Plan: ?Glargine 35 units at bedtime ? Lispro 3 units 3 times daily with meals ? ISS ?Accu-Cheks and hypoglycemia protocol ordered ? Will continue to monitor #Chronic normocytic normochromic anemia ?patient's baseline hemoglobin is around 9 ? On admission patient hemoglobin was 10 and today hemoglobin is 7.9 ? Most likely hemodilutional as patient has gone to multiple boluses Plan: ? Will transfuse if hemoglobin less than 7 ? Will continue to monitor #Hx of hypertension #Hx of hyperlipidemia ?Continue patient's atorvastatin 40 mg at bedtime ? Holding antihypertensive medication for now as blood pressure has been controlled during hospital stay and patient has an active infection Disposition: Patient seen in [facility] continue Abx. Diet: Boost plus, Carb low GI prophylaxis: protonix DVT prophylaxis: Heparin Code: Full Case disclosed with Attending Dr. Apoorva Lopez PGY1 Attending Provider Attestation/Addendum I have examined the patient, reviewed labs and imaging findings, discussed the case with the resident(s), and reviewed entered orders. I agree with the plan of care as outlined in this note, with these additional summaries/recommendations: Patient seen at bedside. No acute overnight events. Today patient is endorsing intractable pain and intractable nausea/vomiting. Will increase Dilaudid and continue as needed Zofran. Patient was admitted for right thigh pain. MRI showed edema in the subcutaneous fatty tissue, significant myositis involving muscles of thigh, biceps femoris, vastus lateralis, vastus intermedius, and adductor nadia. Unclear cause of this isolated myositis. TCK normal on admission and no evidence of rhabdomyolysis. Patient does endorse strenuous activity approximately a week prior and is possible he had rhabdomyolysis at that time although atypical to be isolated to just right thigh. Nonetheless patient's symptoms have significantly improved throughout hospitalization. He has pending physical therapy evaluation and should continue cold compression and Tylenol. Discussed with patient that if his symptoms do not improve more than he would benefit from outpatient referral to rheumatology for myositis panel and possible muscle biopsy. We will defer steroids for now. Leukocytosis present although no source of infection found. We will continue doxycycline for now. Acute kidney injury present on admission significantly improved. Creatinine on admission 2.8 which has now improved to 1.8. Suspect patient has underlying CKD secondary to diabetic nephropathy with superimposed MARLON. Micro/albumin ratio 303 and patient would benefit from SOFIA/ARB on discharge. Patient has uncontrolled diabetes mellitus type 2. A1c 12%. Continue basal and bolus insulin and target blood sugar of 140-180 while hospitalized. Anticipate discharge in the next 24 to 48 hours if pain and nausea improved. Dr. Rey
[2024-11-15] MEDS: ACETAMINOPHEN 325 MG TABLET 650 MG PO (15:11)
--- NOTE | 2024-11-15 15:54 | PD.ORTHCONPN ---
Subjective Subjective Brief History: Patient fell on both lower extremities and backyard. Within 24 hours increasing pain right thigh. Induration right thigh. Because of pain presented to the ER and was admitted New Year's Day was consulted today 11/13/2024. No complaints of pain in right knee without swelling Missing toes of right foot secondary to amputation. Has history of diabetes and also amputations of toes left foot Narrative: Less pain today Exam Vital Signs Temp Pulse Resp BP Pulse Ox O2 Del Method 98.7 F 80 17 117/84 98 Room Air 11/15/24 12:00 11/15/24 12:00 11/15/24 12:00 11/15/24 12:00 11/15/24 12:00 11/15/24 12:00 Temp 98.7, blood pressure 117/84 Narrative Exam Still has induration lateral aspect thigh slightly less redness Objective - Ortho Labs 11/14/24 04:46 11/14/24 04:46 Labs: Hemoglobin 7.9, creatinine 1.8 Assessment & Plan Assessment Additional comments: Does need to have an explanation of why his blood count is going down. Plan to consult with Dr. fenton Plan Repeat CBC, iron panel, B12, B6, reticulocyte count. Stool for occult blood. Has had low hemoglobin since June 2024 Documentation for date of: 11/15/24
[2024-11-15 16:34] LABS: Immature Reticulocyte Fraction 18.3 % (2.3-13.4); Reticulocyte % (Auto) 0.8 % (0.5-1.5); Reticulocyte Absolute Auto 22.5 Biln/L (25.0-75.0); Reticulocyte Hgb Content 29.5 pg (28.0-35.0)
[2024-11-15 17:10] LABS: Total Iron Binding Capacity 153 mcg/dL (250-425)
[2024-11-15 19:16] LABS: Iron 23 mcg/dL (65-175); Percent Iron Saturation 15 % (20-55); Unsaturated Iron Binding 130 (225-295)
[2024-11-15] MEDS: ATORVASTATIN CALCIUM 20 MG TABLET 40 MG PO (21:19)
[2024-11-15] MEDS: INSULIN GLARGINE (Lantus) 5 UNIT/0.05 ML (PER 5 UNITS) 35 UNIT SC (21:34)
[2024-11-16] VITALS: BP 140/82; PULSE 75; PULSE 87; RESP 19; TEMP 36.6; O2SAT 96
[2024-11-16 02:08] LABS: Folate 21.45 ng/mL (>5.38); Vitamin B12 1395 pg/mL (211-911)
[2024-11-16 04:00] VITALS: BP 123/79; PULSE 70; PULSE 90; RESP 20; TEMP 36.9; O2SAT 93
[2024-11-16 06:06] LABS: Basophils % (Auto) 0 % (0-2.5); Eosinophils # (Auto) 0.3 Thou/mm3 (0.0-0.5); Eosinophils % (Auto) 3 % (0-10); Hematocrit 25.4 % (41.0-53.0); Immature Granulocytes % (Auto) 2 % (0-0); Immature Granulocytes Auto 0.19 Thou/mm3 (0.00-0.00); Lymphocytes # (Auto) 1.2 Thou/mm3 (1.0-4.8); Lymphocytes % (Auto) 10 % (10-50); Mean Corpuscular HGB Conc 33.5 g/dl (31.0-37.0); Mean Corpuscular Hemoglobin 29.1 pg (25.0-35.0); Mean Corpuscular Volume 87 fL (80-100); Monocytes % (Auto) 9 % (0-12); Neutrophils # (Auto) 9.3 Thou/mm3 (1.8-7.7); Neutrophils % (Auto) 77 % (37-80); Nucleated Red Blood Cell % 0 /100 WBC (0); Platelet Count 311 Thou/mm3 (140-440); RDW Standard Deviation 40.5 fL (35.1-43.9); Red Blood Count 2.92 Miln/mm3 (4.50-5.90)
[2024-11-16 06:07] LABS: Hemoglobin 8.5 g/dL (13.5-16.0)
[2024-11-16 06:14] LABS: Alanine Aminotransferase 17 U/L (10-49); Albumin, Serum 3.1 gm/dL (3.5-5.0); Albumin/Globulin Ratio 1.1 (1.2-2.2); Alkaline Phosphatase 118 U/L (46-116); Anion Gap 9 (7-16); Aspartate Amino Transferase 24 U/L (0-34); BUN/Creatinine Ratio 23 Ratio (12-20); Bilirubin,Total 0.2 mg/dL (0.3-1.2); Blood Urea Nitrogen 28 mg/dL (9-23); Calcium 8.7 mg/dL (8.3-10.6); Calcium (Corrected) 9.4 mg/dL (8.5-10.1); Carbon Dioxide 22.2 mMol/L (20.0-31.0); Chloride 107 mMol/L (98-107); Creatinine (Component) 1.2 mg/dL (0.6-1.3); Estimated Creatinine Clearance 81.1 mL/min (>60); Globulin 2.7 gm/dL (2.3-3.5); Glucose 137 mg/dL (74-106); Magnesium 1.8 mg/dL (1.6-2.6); Osmolality,Calculated 283 (275-295); Phosphorous 3.3 mg/dL (2.4-5.1); Potassium 4.4 mMol/L (3.4-5.1); Sodium 138 mMol/L (136-145); Total Protein 5.8 gm/dL (5.7-8.2); eGFR > 60 See Note
[2024-11-16 07:54] VITALS: BP 128/73; PULSE 83; RESP 20; TEMP 36.3; O2SAT 93
[2024-11-16 08:00] VITALS: PULSE 83
[2024-11-16] MEDS: HEPARIN SOD INJ 5000 UNIT/ML VIAL SC (08:00)
[2024-11-16] MEDS: INSULIN LISPRO (AdmeLOG) 1 UNIT/0.01 ML UNIT 3 UNIT SC (08:00)
[2024-11-16] MEDS: INSULIN LISPRO (AdmeLOG) 1 UNIT/0.01 ML UNIT SC ×2 (08:00→12:03)
[2024-11-16] MEDS: SENNA TABLET 1 TAB PO (08:01)
[2024-11-16] MEDS: DOXYCYCLINE 100 MG TABLET PO (08:01)
[2024-11-16] MEDS: FERROUS SULF 325 MG TABLET PO (08:01)
[2024-11-16] MEDS: PANTOPRAZOLE 40 MG TABLET PO (08:01)
[2024-11-16 12:00] VITALS: BP 128/87; PULSE 80; RESP 20; TEMP 36.3; O2SAT 95
[2024-11-16] MEDS: INSULIN LISPRO (AdmeLOG) 1 UNIT/0.01 ML UNIT 5 UNIT SC (12:03)
[2024-11-16] MEDS: ACETAMINOPHEN 325 MG TABLET 650 MG PO (12:03)
--- NOTE | 2024-11-16 13:53 | ESDS_ITS ---
Planned Discharge Date 11/16/24 DS: Providers Provider Date of admission: 11/11/24 18:26 Primary care physician: Katlin Pérez PA-C Admitting Provider: Sylvester Guerin DO Attending Provider on Admission: Sylvester Guerin DO Consults: 11/13/24 13:45 Consult to Orthopedic Routine Comment: Consulting Provider: Donald Schulz 11/13/24 15:47 Consult to General Surgery Routine Comment: Consulting Provider: Argenis Barraza 11/15/24 09:55 Referral Physical Therapy Routine Comment: Physician Instructions: 11/15/24 15:59 Consult to Hematology Urgent Comment: Consulting Provider: Kristyn Arevalo Instructions: Has had low hemoglobin since June 2024 before that hemoglobin was over 13 history of diabetes Attending Provider on DC: Peter Escalante MD Discharging Provider: Peter Escalante MD DS: Diagnosis Problem List Completed Was Problem List Reviewed/Reconciled?: Yes Hospital Course Hospital Course Hospital course: 44-year-old male with past medical history of DM2, hypertension, hyperlipidemia, and multiple amputations was admitted to the hospital on 11/11/2024 due to MARLON along with hematuria, and concerns for sepsis. In the ED patient came in with complaints of right lower extremity pain for the past 3 days as well as dark urine. Initially patient was afebrile and normotensive. Initial labs were relevant for leukocytosis (14.3), low hemoglobin (10), elevated ESR (76), pseudohyponatremia (129, corrected 135), hyperglycemia (glucose 369), elevated CRP (27), elevated procalcitonin 0.74, and proteinuria. Initial imaging included knee x-ray which was unremarkable, venous Doppler which was negative for DVT, and soft tissue ultrasound of right lower extremity which showed no hematoma or cystic mass and only showed minimal edema soft tissue posterior to knee. Abdomen/pelvis CT showed perinephric stranding and rectal wall thickening, chest x-ray was unremarkable, and lower extremity CT showed mild edema of subcutaneous fatty tissue in the mid and lower thigh. Additional imaging throughout patient's hospital stay included renal ultrasound which showed bilateral renal parenchymal scar formation, chest x-ray which did not show any pneumonia, and lower extremity MRI which showed myositis of the thigh and edema and subcutaneous fatty tissue. Patient received IV fluids, IV antibiotics, and pain medication throughout the hospital stay. Patient had a rapid response called as well throughout his hospital stay due to fever during this time sepsis alert was called and his antibiotics were switched to more broad-spectrum antibiotics. Patient's blood cultures were also drawn at this time, but remained negative after 48 hours. Given patient's right lower extremity myositis and pain orthopedic surgeon and general surgeon were consulted, but stated that there was no need for surgical intervention at this time as there was no compartment syndrome or any abscess. Orthopedic surgeon consulted hematology as given patient's anemia, but spoke with [employer] and stated that the patient could follow-up outpatient. Patient's pain on the day of discharge was around 2 or 3 out of 10 and he worked with physical therapy and was independent. At the time of discharge patient was stable enough to be discharged home. Discharge plan: Please follow-up with your PCP within 1 week of discharge. You have been started on metformin 100 mg extended release tablets twice daily You have also been started on Jardiance 25 Mg daily You have been started on Humalog 5 units 3 times daily with meals Continue with Humalog sliding scale as advised We have changed your insulin glargine dose to 40 units daily at night -Recommended to return back to emergency department if your symptoms persist or does not improve. Problem list: #Right lower extremity myositis #Myositis #ground-level fall #Concern for sepsis, ruled out #Leukocytosis #UTI #MARLON #Hematuria #Constipation #Nausea #Hx of DM2 #Chronic normocytic normochromic anemia #Hx of hypertension #Hx of hyperlipidemia Case disclosed with Attending Dr. Escalante and My senior Dr. Mcdonald PGY2. Ralph Lopez PGY1 Senior Resident Attestation: I discussed with and supervised the rn internal medicine physician involved in the care of this patient. I personally saw and examined the patient and discussed the assessment and plan with the entire medicine team, including my attending. I agree with the discharge plan as documented above. Steve Mcdonald MD PGY2 Internal Medicine Status at Discharge Overall status at discharge: patient is progressing back to baseline Time Spent with Patient Time attestation: Total time spent providing and/or coordinating discharge services:>35 min Exam Vital Signs Temp Pulse Resp BP Pulse Ox O2 Del Method 97.3 F 83 20 128/73 93 L Room Air 11/16/24 07:54 11/16/24 07:54 11/16/24 07:54 11/16/24 07:54 11/16/24 07:54 11/16/24 07:54 Narrative Exam General: A/O x3, no acute distress, well-nourished, well-developed Eyes: PERRL, EOMI. Anicteric, vision grossly intact. Ears: No ear pain, no ear discharge, Hearing grossly intact. Nose: No nasal discharge. Mouth/Throat: Moist mucous membranes, no redness, no lesions. Neck: Neck supple, non-tender, no cervical lymphadenopathy. Lungs: Clear CHHAYA to auscultation and percussion, No accessory muscle use. Cardio: Normal S1/S2, regular rhythm, no murmurs, no JVD. Abdomen: Soft, non-tender, no palpable masses, peristalsis present, no guarding or rebound. Extremities: Symmetrical, no significant deformities, no peripheral edema , non-tender, peripheral pulses presents, multiple toe amputation CHHAYA feet. mild tenderness in R thigh in lateral aspect. Neuro: No focal neurological deficits. motor and sensory intact Psych: Cooperative, appropriate mood and effect. Discharge Plan Plan Patient Disposition: HOME (Self Care) Care Plan Goals: Please follow-up with your PCP within 1 week of discharge. You have been started on metformin 100 mg extended release tablets twice daily You have also been started on Jardiance 25 Mg daily You have been started on Humalog 5 units 3 times daily with meals You have been started on doxycycline 100 mg twice daily for 3 more days Continue with Humalog sliding scale as advised We have changed your insulin glargine dose to 40 units daily at night -Recommended to return back to emergency department if your symptoms persist or does not improve. Prescriptions/Referrals Prescriptions/Med Rec: New insulin lispro [Humalog KwikPen Insulin] 100 unit/mL insulin pen 5 unit subcut TIDWM 30 Days Qty: 4.5 3RF metformin 1,000 mg tablet extended release 24hr 1,000 mg PO BID Qty: 60 3RF Jardiance 25 mg tablet 25 mg PO QDAY 30 Days Qty: 30 2RF doxycycline hyclate 100 mg capsule 100 mg PO BID Qty: 7 0RF Continued Humalog KwikPen Insulin 200 unit/mL (3 mL) Insulin Pen 1 sliding scale dose SUBCUT USEASDIRECTD Rx Instructions: 2-10 units per sliding scale, 30 units max a day (DME) FreeStyle Jennie 3 Sensor Device See Rx Instructions .Route Qty: 1 2RF Rx Instructions: As directed Changed insulin glargine [Lantus Solostar U-100 Insulin] 100 unit/mL (3 mL) Insulin Pen 40 unit subcut HS 30 Days Qty: 15 2RF Referrals: Kristyn Arevalo MD [Physician] - (Normocytic anemia ) Katlin Pérez PA-C [Primary Care Provider] - Patient/Caregiver Discharge Instructions Other Discharge Activity Instructions:: Please follow-up with your PCP within 1 week of discharge. You have been started on metformin 100 mg extended release tablets twice daily You have also been started on Jardiance 25 Mg daily You have been started on Humalog 5 units 3 times daily with meals You have been started on doxycycline 100 mg twice daily for 3 more days Continue with Humalog sliding scale as advised We have changed your insulin glargine dose to 40 units daily at night -Recommended to return back to emergency department if your symptoms persist or does not improve. Education Materials: Diabetes Shopping Preparing Meals, Diabetes Exercise Get Started, Diabetes Exercise Plan, ED Cellulitis Print Language: [place] Stand Alone Forms: Noa Award Info., Patient Portal Info Letter Discharge Order Discharge Orders: Discharge (Routine); Ordered 11/16/24 Ordered By: Steve Mcdonald Quality Discharge Quality Measures VTE prophylaxis Attestestation Attestation I reviewed labs, imaging, EKG, home medications and prior available records. Face to face evaluation was performed by me. I have personally examined the patient and discussed assessment and plan with the IM team. I reviewed the resident note and agree with the plan with exceptions as below. MARLON Right lower extremity pain Myositis Leukocytosis Chronic anemia Uncontrolled diabetes mellitus type 2 on insulin Continue p.o. doxycycline for the myositis. P.o. Dilaudid Creatinine improved Follow-up with hematology Dr. Summers for the chronic anemia Follow-up with rheumatology for possible autoimmune disorder BMP in 1 week Outpatient orthopedic surgery follow-up Continue DM medications Time spent is 40 minutes. More than 50% of the time was spent on patient educa tion and coordination of care.
[2024-11-16 16:00] VITALS: BP 132/84; PULSE 77; RESP 20; TEMP 36.3; O2SAT 95
== END 2024-11-16 16:00 | disposition home or self-care (01) | DRG 683 ==
LOC: SERX 18:13 → SERHOLD 19:05 → S3NX 22:13
PROVIDERS: Nurse Practitioner Primary Care; Orthopaedic Surgery; Student in an Organized Health Care Education/Training Program; Admitting Provider Student in an Organized Health Care Education/Training Program; Emergency Provider Emergency Medicine; PCP Physician Assistant; Visit Provider Student in an Organized Health Care Education/Training Program
DX: N17.9 Acute kidney failure, unspecified (principal); E87.20 Acidosis, unspecified; N39.0 Urinary tract infection, site not specified; E11.65 Type 2 diabetes mellitus with hyperglycemia; M60.861 Other myositis, right lower leg; D64.9 Anemia, unspecified; E86.0 Dehydration; E78.5 Hyperlipidemia, unspecified; I10 Essential (primary) hypertension; K59.00 Constipation, unspecified; F17.200 Nicotine dependence, unspecified, uncomplicated; Z79.4 Long term (current) use of insulin; Z79.84 Long term (current) use of oral hypoglycemic drugs; Z89.421 Acquired absence of other right toe(s)
CPT/HCPCS: 36415; 71045; 73562; 73700; 73718; 74176; 76705; 76770; 80048; 80053; 81001; 82043; 82436; 82550; 82570; 82607; 82746; 83036; 83540; 83550; 83605; 83735; 84100; 84133; 84145; 84153; 84156; 84300; 84550; 85025; 85046; 85610; 85652; 85730; 86140; 87040; 87086; 87491; 87591; 87661; 93005; 93225; 93971; 96360; 96361; 96372; 97162; 99285; J0692; J0696; J1643; J1815; J7030; J7040; J7050; J7120; A9270